=== PATIENT | female | born 1940 | race Caucasian/White ===

== ENCOUNTER 2022-01-30 09:16 | Inpatient (IN) | payer MEDICARE ==
[2022-01-30 11:06] LABS: SARS-CoV-2 NAA Rapid Test Not Detected (NotDetected)
[2022-01-30] MEDS ORDERED: Neomycin-Polymyxin 1 ML AMP ONE ×2 (11:25→13:29)
[2022-01-30] MEDS ORDERED: Ropivacaine 0.5% HCl/PF (150 MG/30 ML VIAL) ONE (11:29)
[2022-01-30] MEDS ORDERED: EPINEPHrine 1 MG/ML AMP ONE (11:30)
[2022-01-30] MEDS ORDERED: Fentanyl 100 MCG/2 ML VIAL ONE ×3 (11:30→14:13)
[2022-01-30] MEDS ORDERED: Lidocaine 1% PF 5 ML VIAL ONE ×2 (11:30→11:52)
[2022-01-30] MEDS ORDERED: Clindamycin/D5W 900 mg/50 ml Premix Bag ONE (11:36)
[2022-01-30] MEDS ORDERED: Clindamycin/D5W 300 MG/50 ML BAG ONE (11:36)
[2022-01-30] MEDS ORDERED: PROPOFOL 20 ML ONE (11:51)
[2022-01-30] MEDS ORDERED: Rocuronium Bromide 10 MG/ML (10ML VIAL) ONE (11:52)
[2022-01-30] MEDS ORDERED: Ondansetron ODT 4 MG TAB PO PRN (11:59)
[2022-01-30] MEDS ORDERED: Ondansetron PF 4 MG/2 ML Vial IVP PRN (11:59)
[2022-01-30] MEDS ORDERED: Zolpidem Tartrate 5 MG TAB PO PRN (11:59)
[2022-01-30] MEDS ORDERED: Warfarin Sodium 1 MG TAB PO SCH (12:00)
[2022-01-30] MEDS ORDERED: Tranexamic Acid 1,000 MG in Sodium Chloride 0.9% 100 ML IVPB SCH (12:00)
[2022-01-30] MEDS ORDERED: Warfarin Sodium 5 MG TAB PO SCH (12:00)
[2022-01-30] MEDS ORDERED: Tranexamic Acid 1,000 MG/10 ML VIAL ONE (12:05)
[2022-01-30] MEDS ORDERED: Morphine 4 MG/ML VIAL SLOW IVP PRN (12:40)
[2022-01-30] MEDS ORDERED: ePHEDrine Sulfate 50 MG/10 ML VIAL ONE (12:49)
[2022-01-30] MEDS ORDERED: Ondansetron PF 4 MG/2 ML Vial ONE (13:35)
[2022-01-30] MEDS ORDERED: Glycopyrrolate 0.2 MG/ML 5 ML SYRINGE ONE (13:50)
[2022-01-30] MEDS: Sodium Chloride 0.9% 1,000 ML IV SCH ×2 (14:50→21:56)
[2022-01-30] MEDS: Morphine 4 MG/ML VIAL SLOW IVP PRN ×3 (16:07→21:44)
[2022-01-30] MEDS ORDERED: metFORMIN 500 MG TAB PO SCH (16:30)
[2022-01-30] MEDS: HYDROcodone/Acetaminophen 10/325 mg Tablet PO PRN ×2 (17:26→23:59)
[2022-01-30] MEDS: Clindamycin/D5W 900 MG in Premix Bag 1 BAG IVPB SCH (17:28)
[2022-01-30] MEDS ORDERED: HumaLOG 300 UNITS/3 ML VIAL SC PRN (18:38)
[2022-01-30] MEDS ORDERED: Dextrose 5% in Water 1,000 ML IV PRN (18:38)
[2022-01-30] MEDS ORDERED: Dextrose 50% Abboject 50 ML SYRINGE SLOW IVP PRN (18:38)
[2022-01-30] MEDS: Atorvastatin Calcium 10 MG TAB PO SCH (18:59)
[2022-01-30] MEDS: Acetaminophen 500 MG TAB PO SCH (21:45)
[2022-01-30] MEDS: Flecainide 50 MG TAB PO SCH (21:46)
[2022-01-31] MEDS: Clindamycin/D5W 900 MG in Premix Bag 1 BAG IVPB SCH (00:01)
[2022-01-31] MEDS: Morphine 4 MG/ML VIAL SLOW IVP PRN ×4 (03:11→14:36)
[2022-01-31] MEDS: HYDROcodone/Acetaminophen 10/325 mg Tablet PO PRN ×4 (06:10→23:54)
[2022-01-31] MEDS: Levothyroxine Sodium 100 MCG TAB PO SCH (06:11)
[2022-01-31] MEDS: Losartan Potassium 50 MG TAB PO SCH (09:30)
[2022-01-31] MEDS: Enoxaparin Sodium 100 MG/ML SYRINGE SC SCH ×2 (09:30→21:19)
[2022-01-31] MEDS: Flecainide 50 MG TAB PO SCH ×2 (09:30→21:19)
[2022-01-31] MEDS: NIFEdipine XL 30 MG TAB PO SCH (09:30)
[2022-01-31] MEDS: Aspirin Chewable 81 MG TAB PO SCH (09:30)
[2022-01-31 10:58] LABS: #Monocytes 1.2 10x3/uL (0.0-1.1); #Neutrophils 7.1 10x3/uL (1.5-8.4); %Basophils 0.3 % (0.0-2.0); %Lymphocytes 11.4 % (18.0-47.0); %Monocytes 12.9 % (0.0-10.0); %Neutrophils 75.1 % (40.0-75.0); Hemoglobin 9.4 g/dL (12.0-15.5); Mean Corpuscular HGB CONC 34.2 g/dL (32.0-36.0); Mean Corpuscular Hemoglobin 33.8 pg (27.0-33.0); Mean Corpuscular Volume 98.9 fl (81.6-98.3); Mean Platelet Volume 10.2 fl (7.4-10.4); Platelet Count 228 10x3/uL (150-450); RBC Distribution Width 12.6 % (11.5-14.5); Red Blood Cell (RBC) Count 2.78 10x6/uL (3.90-5.03); White Blood Cell (WBC) Count 9.5 10x3/uL (3.5-10.5)
[2022-01-31 11:25] LABS: ALT (SGPT) 17 U/L (8-55); AST (SGOT) 28 U/L (5-34); Albumin 3.4 g/dL (3.4-4.8); Alkaline Phosphatase 43 U/L (40-110); Anion Gap 12 mmol/L (10-20); BUN (Urea Nitrogen) 15 mg/dL (9.8-20.1); Bilirubin, Total 0.7 mg/dL (0.2-1.2); Calc. Creatinine Clearance 90 mL/min (70-130); Calcium 8.3 mg/dL (7.8-10.44); Carbon Dioxide 24 mmol/L (23-31); Chloride 102 mmol/L (98-107); Estimated GFR 71; Globulin 2.9 g/dL (2.4-3.5); Glucose 143 mg/dL (83-110); Potassium 4.5 mmol/L (3.5-5.1); Protein, Total 6.3 g/dL (5.8-8.1); Sodium 133 mmol/L (136-145)
[2022-01-31] MEDS: Sodium Chloride 0.9% 1,000 ML IV SCH (12:38)
[2022-01-31] MEDS: Atorvastatin Calcium 10 MG TAB PO SCH (17:23)
[2022-01-31] MEDS: Ketorolac Tromethamine 30 MG/ML VIAL IVP SCH (18:28)
[2022-01-31] MEDS: Acetaminophen 500 MG TAB PO SCH (21:19)
[2022-02-01] MEDS: Sodium Chloride 0.9% 1,000 ML IV SCH ×3 (00:01→14:10)
[2022-02-01] MEDS: Ketorolac Tromethamine 30 MG/ML VIAL IVP SCH ×4 (01:27→17:36)
[2022-02-01 05:46] LABS: #Eosinphils 0.1 10x3/uL (0.0-0.5); #Monocytes 1.4 10x3/uL (0.0-1.1); #Neutrophils 6.8 10x3/uL (1.5-8.4); %Basophils 0.4 % (0.0-2.0); %Eosinophils 0.9 % (0.0-6.0); %Lymphocytes 14.2 % (18.0-47.0); %Monocytes 13.9 % (0.0-10.0); %Neutrophils 70.1 % (40.0-75.0); Hemoglobin 8.9 g/dL (12.0-15.5); Mean Corpuscular HGB CONC 33.7 g/dL (32.0-36.0); Mean Corpuscular Hemoglobin 33.6 pg (27.0-33.0); Mean Corpuscular Volume 99.6 fl (81.6-98.3); Mean Platelet Volume 10.5 fl (7.4-10.4); Platelet Count 202 10x3/uL (150-450); RBC Distribution Width 12.6 % (11.5-14.5); Red Blood Cell (RBC) Count 2.65 10x6/uL (3.90-5.03); White Blood Cell (WBC) Count 9.8 10x3/uL (3.5-10.5)
[2022-02-01 05:51] LABS: ALT (SGPT) 12 U/L (8-55); AST (SGOT) 23 U/L (5-34); Albumin 3.2 g/dL (3.4-4.8); Alkaline Phosphatase 51 U/L (40-110); Anion Gap 12 mmol/L (10-20); BUN (Urea Nitrogen) 18 mg/dL (9.8-20.1); Bilirubin, Total 0.8 mg/dL (0.2-1.2); Calc. Creatinine Clearance 86 mL/min (70-130); Calcium 8.1 mg/dL (7.8-10.44); Carbon Dioxide 20 mmol/L (23-31); Chloride 105 mmol/L (98-107); Estimated GFR 64; Globulin 2.8 g/dL (2.4-3.5); Glucose 114 mg/dL (83-110); Magnesium 1.2 mg/dL (1.6-2.6); Potassium 4.4 mmol/L (3.5-5.1); Sodium 133 mmol/L (136-145)
[2022-02-01] MEDS: Enoxaparin Sodium 100 MG/ML SYRINGE SC SCH ×2 (09:41→20:46)
[2022-02-01] MEDS: Losartan Potassium 50 MG TAB PO SCH (09:42)
[2022-02-01] MEDS: Aspirin Chewable 81 MG TAB PO SCH (09:42)
[2022-02-01] MEDS: NIFEdipine XL 30 MG TAB PO SCH (09:43)
[2022-02-01] MEDS: Levothyroxine Sodium 100 MCG TAB PO SCH (09:43)
[2022-02-01] MEDS: Flecainide 50 MG TAB PO SCH ×2 (09:43→20:44)
[2022-02-01] MEDS: Magnesium 2 GM/50 ML(in water) 2 GM in Premix Bag 1 BAG IVPB SCH ×2 (12:43→15:34)
[2022-02-01] MEDS: Atorvastatin Calcium 10 MG TAB PO SCH (17:36)
[2022-02-01] MEDS: Acetaminophen 500 MG TAB PO SCH (20:44)
[2022-02-01] MEDS: HYDROcodone/Acetaminophen 10/325 mg Tablet PO PRN (20:45)
[2022-02-02] MEDS: Ketorolac Tromethamine 30 MG/ML VIAL IVP SCH ×3 (00:46→14:38)
[2022-02-02 05:16] LABS: #Monocytes 1.2 10x3/uL (0.0-1.1); #Neutrophils 11.2 10x3/uL (1.5-8.4); %Basophils 0.3 % (0.0-2.0); %Eosinophils 0.1 % (0.0-6.0); %Lymphocytes 11.3 % (18.0-47.0); %Monocytes 8.6 % (0.0-10.0); %Neutrophils 79.2 % (40.0-75.0); Hemoglobin 8.1 g/dL (12.0-15.5); Mean Corpuscular HGB CONC 34.3 g/dL (32.0-36.0); Mean Corpuscular Hemoglobin 34.3 pg (27.0-33.0); Mean Platelet Volume 10.5 fl (7.4-10.4); Platelet Count 236 10x3/uL (150-450); RBC Distribution Width 12.6 % (11.5-14.5); Red Blood Cell (RBC) Count 2.36 10x6/uL (3.90-5.03); White Blood Cell (WBC) Count 14.2 10x3/uL (3.5-10.5)
[2022-02-02 05:24] LABS: ALT (SGPT) 12 U/L (8-55); AST (SGOT) 18 U/L (5-34); Alkaline Phosphatase 63 U/L (40-110); Anion Gap 13 mmol/L (10-20); BUN (Urea Nitrogen) 26 mg/dL (9.8-20.1); Bilirubin, Total 0.7 mg/dL (0.2-1.2); Calc. Creatinine Clearance 60 mL/min (70-130); Calcium 8.4 mg/dL (7.8-10.44); Carbon Dioxide 20 mmol/L (23-31); Chloride 108 mmol/L (98-107); Estimated GFR 42; Globulin 2.9 g/dL (2.4-3.5); Glucose 148 mg/dL (83-110); Potassium 4.5 mmol/L (3.5-5.1); Protein, Total 5.9 g/dL (5.8-8.1); Sodium 136 mmol/L (136-145)
[2022-02-02] MEDS: Levothyroxine Sodium 100 MCG TAB PO SCH (05:25)
[2022-02-02] MEDS: Sodium Chloride 0.9% 1,000 ML IV SCH ×2 (05:31→10:52)
[2022-02-02] MEDS: HYDROcodone/Acetaminophen 10/325 mg Tablet PO PRN ×2 (05:38→09:17)
[2022-02-02] MEDS: NIFEdipine XL 30 MG TAB PO SCH (09:16)
[2022-02-02] MEDS: Enoxaparin Sodium 100 MG/ML SYRINGE SC SCH (09:16)
[2022-02-02] MEDS: Aspirin Chewable 81 MG TAB PO SCH (09:16)
[2022-02-02] MEDS: Losartan Potassium 50 MG TAB PO SCH (09:16)
[2022-02-02] MEDS: Flecainide 50 MG TAB PO SCH ×2 (09:16→22:00)
[2022-02-02] MEDS ORDERED: Sodium Chloride 0.9% 1,000 ML IV SCH ×2 (12:00→13:00)
[2022-02-02] MEDS ORDERED: VANCOMYCIN 2 GRAM/400 ML BAG 2 GM in Premix Bag 1 BAG IVPB SCH (13:00)
[2022-02-02] MEDS ORDERED: Cefepime 2 GM in Sodium Chloride 0.9% 100 ML IVPB SCH (13:00)
[2022-02-02 13:14] LABS: Hemoglobin 6.8 g/dL (12.0-15.5); Mean Corpuscular Hemoglobin 33.8 pg (27.0-33.0); Mean Corpuscular Volume 99.5 fl (81.6-98.3); Mean Platelet Volume 10.5 fl (7.4-10.4); Platelet Count 213 10x3/uL (150-450); RBC Distribution Width 12.7 % (11.5-14.5); Red Blood Cell (RBC) Count 2.01 10x6/uL (3.90-5.03); White Blood Cell (WBC) Count 17.9 10x3/uL (3.5-10.5)
[2022-02-02 13:15] LABS: MDiff Complete? YES
[2022-02-02 13:34] LABS: Troponin I 0.018 ng/mL (< 0.028)
[2022-02-02 13:35] LABS: ALT (SGPT) 10 U/L (8-55); AST (SGOT) 17 U/L (5-34); Albumin 2.5 g/dL (3.4-4.8); Alkaline Phosphatase 57 U/L (40-110); Anion Gap 14 mmol/L (10-20); BUN (Urea Nitrogen) 30 mg/dL (9.8-20.1); Calc. Creatinine Clearance 42 mL/min (70-130); Calcium 7.4 mg/dL (7.8-10.44); Carbon Dioxide 15 mmol/L (23-31); Chloride 110 mmol/L (98-107); Estimated GFR 27; Globulin 2.1 g/dL (2.4-3.5); Glucose 155 mg/dL (83-110); Protein, Total 4.6 g/dL (5.8-8.1); Sodium 135 mmol/L (136-145)
[2022-02-02 13:45] LABS: Band 6 % (5-11); Lymphocytes 11 % (21-51); Monocytes 6 % (0-10); Neutrophil 77 % (42-75)
[2022-02-02 13:46] LABS: Platelet Morphology Comment Appears Adequate
[2022-02-02] MEDS ORDERED: Pantoprazole 80 MG in Sodium Chloride 0.9% 100 ML IVPB SCH (13:55)
[2022-02-02] MEDS: NOREPINEPHRINE 8 MG/250 ML-D5W 250 ML IVPB SCH (13:55)
[2022-02-02] MEDS ORDERED: Vancomycin Sliding Scale 1 EACH IVPB PRN (14:40)
[2022-02-02] MEDS: metroNIDAZOLE 500 MG in Premix Bag 1 BAG IVPB SCH ×2 (15:26→23:09)
[2022-02-02 15:47] LABS: INR-International Normal Ratio 1.1; PTT 53.8 sec (22.0-33.0); Prothrombin Time 11.9 sec (9.5-12.1)
[2022-02-02] MEDS ORDERED: Sodium Bicarbonate 150 MEQ in Dextrose 5% in Water 1,000 ML IV SCH ×2 (16:00→23:15)
[2022-02-02] MEDS ORDERED: Rocuronium Bromide 10 MG/ML (10ML VIAL) ONE (17:23)
[2022-02-02] MEDS ORDERED: Fentanyl 100 MCG/2 ML VIAL ONE (17:23)
[2022-02-02] MEDS ORDERED: Succinylcholine 200 MG/10 ml SYRINGE FS ONE (17:23)
[2022-02-02] MEDS ORDERED: Ondansetron PF 4 MG/2 ML Vial ONE (17:23)
[2022-02-02] MEDS: Atorvastatin Calcium 10 MG TAB PO SCH (17:24)
[2022-02-02] MEDS ORDERED: Ketamine 50 MG/ML (10ML VIAL) ONE (17:25)
[2022-02-02] MEDS ORDERED: EPINEPHrine 1 MG/ML AMP ONE (17:42)
[2022-02-02] MEDS ORDERED: Bupivacaine PF 0.5% 30 ML VIAL ONE (17:42)
[2022-02-02 17:53] LABS: Bilirubin Neg (Negative); Blood, Urine Negative (Negative); CAUTI Indications for Culture Dysuria,urgency,freq; Clarity Clear (Clear); Glucose, Urine (Dipstick) Normal (Negative); Ketone, Urine Negative (Negative); Leukocyte Negative (Negative); Nitrite Negative (Negative); Protein, Urine (Dipstick) Negative (Neg-Trace); Specific Gravity, Urine 1.015 (1.005-1.030); pH, Urine 6.5 (5.0-9.0)
[2022-02-02 17:57] LABS: Urine Culture Reflex No No
[2022-02-02 17:59] LABS: Bacteria/HPF None Seen HPF (None Seen); RBC/HPF 0-3 HPF (0-3); Squamous Epithelial 0-3 HPF (0-3); WBC/HPF 0-3 HPF (0-3)
[2022-02-02] MEDS ORDERED: Cefepime 1 GM in Sodium Chloride 0.9% 100 ML IVPB SCH (19:00)
[2022-02-02] MEDS ORDERED: Midazolam HCl 2 mg/2 ml Vial ONE (19:46)
[2022-02-02] MEDS ORDERED: Doxycycline 100 MG in Sodium Chloride 0.9% 100 ML IVPB SCH (21:00)
[2022-02-02] MEDS ORDERED: Vancomycin HCl 1 GM in Sodium Chloride 0.9% 250 ML 250 ML IVPB SCH (21:00)
[2022-02-02] MEDS ORDERED: Ventilator Sedation Protocol 1 EACH FS ONE (21:16)
[2022-02-02] MEDS ORDERED: Propofol BOLUS 1,000 MG/100 ML VIAL IV PRN (21:30)
[2022-02-02] MEDS ORDERED: DISCONTINUE PREVIOUS NARCOTIC PAIN MEDICATIONS AND BENZODIAZEPINES FS SCH (21:30)
[2022-02-02] MEDS ORDERED: Fentanyl BOLUS 250 ML IVPB PRN (21:30)
[2022-02-02] MEDS ORDERED: Propofol 1,000 MG/100 ML VIAL IV PRN (21:34)
[2022-02-02 21:57] LABS: MDiff Complete? YES; Mean Corpuscular HGB CONC 35.4 g/dL (32.0-36.0); Mean Corpuscular Hemoglobin 33.8 pg (27.0-33.0); Mean Corpuscular Volume 95.4 fl (81.6-98.3); Mean Platelet Volume 10.3 fl (7.4-10.4); Platelet Count 230 10x3/uL (150-450); RBC Distribution Width 14.6 % (11.5-14.5); Red Blood Cell (RBC) Count 2.37 10x6/uL (3.90-5.03); White Blood Cell (WBC) Count 15.3 10x3/uL (3.5-10.5)
[2022-02-02] MEDS: Acetaminophen 500 MG TAB PO SCH (22:00)
[2022-02-02 22:01] LABS: Lactic Acid 1.3 mmol/L (0.5-2.2)
[2022-02-02 22:03] LABS: Phosphorus 4.1 mg/dL (2.3-4.7)
[2022-02-02 22:06] LABS: ALT (SGPT) 24 U/L (8-55); AST (SGOT) 27 U/L (5-34); Albumin 2.5 g/dL (3.4-4.8); Alkaline Phosphatase 62 U/L (40-110); Anion Gap 13 mmol/L (10-20); BUN (Urea Nitrogen) 33 mg/dL (9.8-20.1); Bilirubin, Total 1.4 mg/dL (0.2-1.2); Calc. Creatinine Clearance 45 mL/min (70-130); Calcium 7.4 mg/dL (7.8-10.44); Carbon Dioxide 17 mmol/L (23-31); Chloride 107 mmol/L (98-107); Estimated GFR 30; Globulin 2.6 g/dL (2.4-3.5); Glucose 223 mg/dL (83-110); Magnesium 2.1 mg/dL (1.6-2.6); Protein, Total 5.1 g/dL (5.8-8.1); Sodium 133 mmol/L (136-145)
[2022-02-02 22:53] LABS: ALV-art Gradient 98.025 mmHg (0-20); Actual Bicarbonate (HCO3a) 21.4 mEq/L (22-28); Base Excess (BEa) -5.3 mEq/L (-2.0 to +3.0); CO2 Tension 46.7 mmHg (35.0-45.0); Calcium, Ionized (arterial) 1.07 mmol/L (1.12-1.30); Carboxyhemoglobin (COHb) 0.1 gm% (0.0-3.0); Critical Notified By: CP.PH; Hemoglobin (Hb) 9.9 g/dL (12.0-16.0); O2 Tension (PaO2), arterial 128.8 mmHg (> 70.0); Puncture Site Arterial Line; RapidComm Collect By CP.PH; pH, Arterial 7.28 (7.35-7.45)
[2022-02-02 22:58] LABS: Band 15 % (5-11); Lymphocytes 8 % (21-51); Monocytes 11 % (0-10); Neutrophil 66 % (42-75)
[2022-02-02 23:01] LABS: Anisocytosis SLIGHT = 6-15 cells (100X) (0-5/hpf); Large Platelets SLIGHT; Macrocytosis MODERATE=16-30 cells (100X) (0-5/hpf); Platelet Morphology Comment Appears Adequate; Polychromasia SLIGHT = 2-3 cells (100X) (0-2/hpf)
[2022-02-02] MEDS: Propofol 1,000 MG/100 ML VIAL IV PRN (23:43)
[2022-02-03] MEDS: Morphine 2 MG/ML VIAL SLOW IVP PRN (00:24)
[2022-02-03] MEDS: Cefepime 1 GM in Sodium Chloride 0.9% 100 ML IVPB SCH ×2 (03:00→13:23)
[2022-02-03 04:19] LABS: ALT (SGPT) 17 U/L (8-55); AST (SGOT) 23 U/L (5-34); Albumin 2.4 g/dL (3.4-4.8); Alkaline Phosphatase 58 U/L (40-110); Anion Gap 12 mmol/L (10-20); BUN (Urea Nitrogen) 33 mg/dL (9.8-20.1); Bilirubin, Total 1.4 mg/dL (0.2-1.2); Calc. Creatinine Clearance 59 mL/min (70-130); Calcium 7.2 mg/dL (7.8-10.44); Carbon Dioxide 19 mmol/L (23-31); Chloride 108 mmol/L (98-107); Estimated GFR 41; Globulin 2.5 g/dL (2.4-3.5); Glucose 181 mg/dL (83-110); Potassium 3.8 mmol/L (3.5-5.1); Protein, Total 4.9 g/dL (5.8-8.1); Sodium 135 mmol/L (136-145)
[2022-02-03 04:50] LABS: Hemoglobin 8.3 g/dL (12.0-15.5); Mean Corpuscular HGB CONC 34.9 g/dL (32.0-36.0); Mean Corpuscular Hemoglobin 32.4 pg (27.0-33.0); Mean Platelet Volume 10.5 fl (7.4-10.4); Platelet Count 261 10x3/uL (150-450); RBC Distribution Width 15.3 % (11.5-14.5); Red Blood Cell (RBC) Count 2.56 10x6/uL (3.90-5.03); White Blood Cell (WBC) Count 16.1 10x3/uL (3.5-10.5)
[2022-02-03 04:51] LABS: MDiff Complete? YES
[2022-02-03] MEDS: metroNIDAZOLE 500 MG in Premix Bag 1 BAG IVPB SCH ×3 (05:07→20:49)
[2022-02-03] MEDS: Levothyroxine 100 MCG SDV SLOW IVP SCH (05:11)
[2022-02-03] MEDS: NOREPINEPHRINE 8 MG/250 ML-D5W 250 ML IVPB SCH ×2 (06:30→16:30)
[2022-02-03 07:02] LABS: Band 28 % (5-11); Lymphocytes 8 % (21-51); Monocytes 16 % (0-10); Neutrophil 48 % (42-75); Nucleated RBC 1 % (0)
[2022-02-03 07:04] LABS: Anisocytosis SLIGHT = 6-15 cells (100X) (0-5/hpf); Hypochromia SLIGHT = 6-15 cells (100X) (0-5/hpf); Macrocytosis SLIGHT = 6-15 cells (100X) (0-5/hpf); Platelet Morphology Comment Appears Adequate
[2022-02-03] MEDS: Propofol 1,000 MG/100 ML VIAL IV PRN ×2 (07:38→16:30)
[2022-02-03 08:14] LABS: Base Excess (BEa) -2.2 mEq/L (-2.0 to +3.0); CO2 Tension 29.2 mmHg (35.0-45.0); Calcium, Ionized (arterial) 0.88 mmol/L (1.12-1.30); Carboxyhemoglobin (COHb) 0.2 gm% (0.0-3.0); Hemoglobin (Hb) 7.5 g/dL (12.0-16.0); O2 Tension (PaO2), arterial 127.6 mmHg (> 70.0); Potassium - ABG Lab 2.9 mmol/L (3.70-5.30); Puncture Site Arterial Line; pH, Arterial 7.47 (7.35-7.45)
[2022-02-03] MEDS: Aspirin Chewable 81 MG TAB PO SCH (09:35)
[2022-02-03] MEDS: Flecainide 50 MG TAB PO SCH ×2 (09:37→20:48)
[2022-02-03] MEDS ORDERED: Ventilator Sedation Protocol 1 EACH FS PRN (10:30)
[2022-02-03] MEDS: FENTANYL 2,000MCG/100-0.9%NACL 100 ML IVPB SCH (10:56)
[2022-02-03] MEDS: Sodium Bicarbonate 150 MEQ in Dextrose 5% in Water 1,000 ML IV SCH (11:06)
[2022-02-03] MEDS ORDERED: Vancomycin HCl 1 GM in Sodium Chloride 0.9% 250 ML 250 ML IVPB SCH (14:30)
[2022-02-03] MEDS ORDERED: Heparin 10,000 UNITS/ 10 ML VIAL SLOW IVP SCH (14:45)
[2022-02-03] MEDS: Heparin 25,000 units/D5W 500 ML IV SCH (15:33)
[2022-02-03] MEDS: Lorazepam 2 MG/ML VIAL SLOW IVP PRN (17:24)
[2022-02-03] MEDS: Pantoprazole 40 MG VIAL IVP SCH (20:48)
[2022-02-03] MEDS: Acetaminophen 500 MG TAB PO SCH (20:48)
[2022-02-03 21:51] LABS: Hemoglobin 7.6 g/dL (12.0-15.5)
[2022-02-04] MEDS: Cefepime 1 GM in Sodium Chloride 0.9% 100 ML IVPB SCH ×2 (01:34→14:14)
[2022-02-04] MEDS: FENTANYL 2,000MCG/100-0.9%NACL 100 ML IVPB SCH ×2 (01:34→21:23)
[2022-02-04] MEDS: Propofol 1,000 MG/100 ML VIAL IV PRN (02:04)
[2022-02-04 03:31] LABS: Hemoglobin 7.6 g/dL (12.0-15.5); Mean Corpuscular HGB CONC 35.5 g/dL (32.0-36.0); Mean Corpuscular Hemoglobin 32.6 pg (27.0-33.0); Mean Corpuscular Volume 91.8 fl (81.6-98.3); Platelet Count 276 10x3/uL (150-450); RBC Distribution Width 15.1 % (11.5-14.5); Red Blood Cell (RBC) Count 2.33 10x6/uL (3.90-5.03); White Blood Cell (WBC) Count 15.7 10x3/uL (3.5-10.5)
[2022-02-04 03:32] LABS: MDiff Complete? YES
[2022-02-04 04:07] LABS: ALT (SGPT) 13 U/L (8-55); AST (SGOT) 15 U/L (5-34); Albumin 2.1 g/dL (3.4-4.8); Alkaline Phosphatase 60 U/L (40-110); Anion Gap 12 mmol/L (10-20); BUN (Urea Nitrogen) 23 mg/dL (9.8-20.1); Bilirubin, Total 0.8 mg/dL (0.2-1.2); Calc. Creatinine Clearance 117 mL/min (70-130); Calcium 7.2 mg/dL (7.8-10.44); Carbon Dioxide 23 mmol/L (23-31); Chloride 102 mmol/L (98-107); Estimated GFR 84; Globulin 2.6 g/dL (2.4-3.5); Glucose 164 mg/dL (83-110); Magnesium 1.8 mg/dL (1.6-2.6); Phosphorus 1.7 mg/dL (2.3-4.7); Potassium 3.3 mmol/L (3.5-5.1); Protein, Total 4.7 g/dL (5.8-8.1); Sodium 134 mmol/L (136-145)
[2022-02-04] MEDS: NOREPINEPHRINE 8 MG/250 ML-D5W 250 ML IVPB SCH (04:46)
[2022-02-04] MEDS: Lorazepam 2 MG/ML VIAL SLOW IVP PRN (04:53)
[2022-02-04] MEDS: Potassium Chloride 20 MEQ in Premix Bag 1 BAG IVPB SCH ×2 (05:21→10:39)
[2022-02-04] MEDS ORDERED: Sodium Phosphate 15 MMOL in Sodium Chloride 0.9% 250 ML 250 ML IVPB SCH (05:30)
[2022-02-04 05:44] LABS: Actual Bicarbonate (HCO3a) 27.3 mEq/L (22-28); CO2 Tension 40.8 mmHg (35.0-45.0); Calcium, Ionized (arterial) 1.03 mmol/L (1.12-1.30); Carboxyhemoglobin (COHb) 0.1 gm% (0.0-3.0); Critical Notified By: CP.PH; Hemoglobin (Hb) 8.3 g/dL (12.0-16.0); O2 Tension (PaO2), arterial 72.4 mmHg (> 70.0); Potassium - ABG Lab 3.2 mmol/L (3.70-5.30); Puncture Site Arterial Line; RapidComm Collect By CP.PH; pH, Arterial 7.44 (7.35-7.45)
[2022-02-04] MEDS: metroNIDAZOLE 500 MG in Premix Bag 1 BAG IVPB SCH ×3 (06:04→21:23)
[2022-02-04] MEDS: Levothyroxine 100 MCG SDV SLOW IVP SCH (06:04)
[2022-02-04 06:35] LABS: Lymphocytes 14 % (21-51); Monocytes 12 % (0-10); Neutrophil 74 % (42-75)
[2022-02-04 06:41] LABS: Anisocytosis SLIGHT = 6-15 cells (100X) (0-5/hpf); Microcytosis SLIGHT = 6-15 cells (100X) (0-5/hpf); Platelet Morphology Comment Appears Adequate; Polychromasia SLIGHT = 2-3 cells (100X) (0-2/hpf)
[2022-02-04] MEDS: Sodium Bicarbonate 150 MEQ in Dextrose 5% in Water 1,000 ML IV SCH (06:54)
[2022-02-04] MEDS ORDERED: Electrolyte Replacement Protocol 1 EACH FS PRN (07:07)
[2022-02-04] MEDS ORDERED: Bupivacaine PF 0.5% 30 ML VIAL ONE (07:30)
[2022-02-04] MEDS ORDERED: EPINEPHrine 1 MG/ML AMP ONE ×2 (07:30→08:43)
[2022-02-04] MEDS ORDERED: Albumin 5% 250 ML ONE ×2 (07:38→07:39)
[2022-02-04] MEDS ORDERED: Albumin 5% 0 ML ONE (07:38)
[2022-02-04] MEDS ORDERED: Norepinephrine 4 MG/4 ML VIAL ONE (07:40)
[2022-02-04] MEDS ORDERED: Potassium Chloride 20 MEQ in Premix Bag 1 BAG IVPB SCH (07:45)
[2022-02-04] MEDS ORDERED: Magnesium 2 GM/50 ML(in water) 2 GM in Premix Bag 1 BAG IVPB SCH (08:00)
[2022-02-04] MEDS ORDERED: Fentanyl 100 MCG/2 ML VIAL ONE (08:12)
[2022-02-04] MEDS ORDERED: Vancomycin HCl 1 GM in Sodium Chloride 0.9% 250 ML 250 ML IVPB SCH ×2 (08:30→10:30)
[2022-02-04] MEDS ORDERED: Glycopyrrolate 0.2 MG/ML 5 ML SYRINGE ONE ×2 (08:43→08:54)
[2022-02-04] MEDS ORDERED: Atropine Sulfate 0.4 mg/1 ml Vial ONE (08:43)
[2022-02-04] MEDS ORDERED: PHENYLEPHRINE-NS 100 MCG/ML 10 ML SYRINGE ONE (08:43)
[2022-02-04] MEDS ORDERED: Ketorolac Tromethamine 30 MG/ML VIAL ONE (08:44)
[2022-02-04] MEDS ORDERED: Calcium Chloride 1 GM/10 ML Abboject SYRINGE ONE ×2 (08:49→08:55)
[2022-02-04] MEDS ORDERED: Lidocaine 1% PF 5 ML VIAL ONE (08:53)
[2022-02-04] MEDS ORDERED: Dexamethasone 4 mg/ml Vial ONE (08:53)
[2022-02-04] MEDS ORDERED: Rocuronium Bromide 10 MG/ML (10ML VIAL) ONE (08:53)
[2022-02-04] MEDS ORDERED: Succinylcholine 200 MG/10 ml SYRINGE FS ONE (08:54)
[2022-02-04] MEDS ORDERED: CEFAZOLIN 1 GM VIAL ONE (08:54)
[2022-02-04] MEDS ORDERED: Esmolol 100 MG/10 ML VIAL ONE (08:54)
[2022-02-04] MEDS ORDERED: Lidocaine 2% PF 5 ML VIAL ONE (08:54)
[2022-02-04] MEDS ORDERED: Sodium Chloride 0.9% 0 ML ONE (08:55)
[2022-02-04] MEDS ORDERED: Potassium Phosphate 15 MMOL in Sodium Chloride 0.9% 250 ML 250 ML IVPB SCH (10:00)
[2022-02-04] MEDS: Flecainide 50 MG TAB PO SCH ×2 (10:53→21:26)
[2022-02-04] MEDS: Aspirin Chewable 81 MG TAB PO SCH (10:53)
[2022-02-04] MEDS: Pantoprazole 40 MG VIAL IVP SCH ×2 (10:55→21:22)
[2022-02-04 11:19] LABS: Actual Bicarbonate (HCO3a) 25.7 mEq/L (22-28); Base Excess (BEa) -0.5 mEq/L (-2.0 to +3.0); CO2 Tension 48.5 mmHg (35.0-45.0); Calcium, Ionized (arterial) 1.14 mmol/L (1.12-1.30); Carboxyhemoglobin (COHb) 0.4 gm% (0.0-3.0); Hemoglobin (Hb) 13.3 g/dL (12.0-16.0); O2 Tension (PaO2), arterial 107.5 mmHg (> 70.0); Potassium - ABG Lab 3.2 mmol/L (3.70-5.30); Puncture Site Other Site; RapidComm Collect By OR NURSE; pH, Arterial 7.34 (7.35-7.45)
[2022-02-04 11:23] LABS: ALV-art Gradient 544.875 mmHg (0-20)
[2022-02-04] MEDS ORDERED: Albumin 25% 25 GM/100 ML BOT IVPB SCH (13:00)
[2022-02-04] MEDS: Heparin 25,000 units/D5W 500 ML IV SCH (18:32)
[2022-02-04 20:11] LABS: Hemoglobin 7.3 g/dL (12.0-15.5)
[2022-02-04] MEDS: Acetaminophen 500 MG TAB PO SCH (21:21)
[2022-02-05 00:19] LABS: Hemoglobin 7.5 g/dL (12.0-15.5)
[2022-02-05] MEDS: Cefepime 1 GM in Sodium Chloride 0.9% 100 ML IVPB SCH ×2 (01:04→13:07)
[2022-02-05] MEDS ORDERED: Sodium Chloride 0.9% 500 ML IV SCH (01:30)
[2022-02-05] MEDS: NOREPINEPHRINE 8 MG/250 ML-D5W 250 ML IVPB SCH ×2 (02:06→22:19)
[2022-02-05] MEDS: Morphine 2 MG/ML VIAL SLOW IVP PRN (03:51)
[2022-02-05 04:35] LABS: Hemoglobin 7.1 g/dL (12.0-15.5); Mean Corpuscular HGB CONC 34.1 g/dL (32.0-36.0); Mean Corpuscular Hemoglobin 32.7 pg (27.0-33.0); Mean Corpuscular Volume 95.9 fl (81.6-98.3); Mean Platelet Volume 9.6 fl (7.4-10.4); Platelet Count 269 10x3/uL (150-450); RBC Distribution Width 15.1 % (11.5-14.5); Red Blood Cell (RBC) Count 2.17 10x6/uL (3.90-5.03); White Blood Cell (WBC) Count 13.2 10x3/uL (3.5-10.5)
[2022-02-05 04:43] LABS: Actual Bicarbonate (HCO3a) 25.2 mEq/L (22-28); Base Excess (BEa) -0.2 mEq/L (-2.0 to +3.0); CO2 Tension 44.2 mmHg (35.0-45.0); Calcium, Ionized (arterial) 1.06 mmol/L (1.12-1.30); Carboxyhemoglobin (COHb) 0.1 gm% (0.0-3.0); Critical Notified By: CP.PH; Hemoglobin (Hb) 10.3 g/dL (12.0-16.0); O2 Tension (PaO2), arterial 69.6 mmHg (> 70.0); Potassium - ABG Lab 3.7 mmol/L (3.70-5.30); Puncture Site LRA; RapidComm Collect By CP.PH; pH, Arterial 7.37 (7.35-7.45)
[2022-02-05 04:49] LABS: MDiff Complete? YES
[2022-02-05 04:53] LABS: Band 12 % (5-11); Eosinophils 2 % (0-10); Lymphocytes 13 % (21-51); Monocytes 6 % (0-10); Neutrophil 65 % (42-75); Reactive Lymphocytes 1 % (0-10)
[2022-02-05 04:54] LABS: Platelet Morphology Comment Appears Adequate
[2022-02-05 04:55] LABS: RBC Morphology Normal
[2022-02-05 05:10] LABS: ALT (SGPT) 17 U/L (8-55); AST (SGOT) 17 U/L (5-34); Albumin 2.4 g/dL (3.4-4.8); Alkaline Phosphatase 60 U/L (40-110); Anion Gap 9 mmol/L (10-20); BUN (Urea Nitrogen) 22 mg/dL (9.8-20.1); Calc. Creatinine Clearance 113 mL/min (70-130); Calcium 7.6 mg/dL (7.8-10.44); Carbon Dioxide 25 mmol/L (23-31); Chloride 105 mmol/L (98-107); Estimated GFR 80; Globulin 2.4 g/dL (2.4-3.5); Glucose 153 mg/dL (83-110); Magnesium 2.3 mg/dL (1.6-2.6); Phosphorus 2.5 mg/dL (2.3-4.7); Potassium 3.7 mmol/L (3.5-5.1); Protein, Total 4.8 g/dL (5.8-8.1); Sodium 135 mmol/L (136-145)
[2022-02-05] MEDS: metroNIDAZOLE 500 MG in Premix Bag 1 BAG IVPB SCH ×3 (06:04→21:12)
[2022-02-05] MEDS: Levothyroxine 100 MCG SDV SLOW IVP SCH (06:04)
[2022-02-05] MEDS: Pantoprazole 40 MG VIAL IVP SCH ×2 (09:03→20:19)
[2022-02-05] MEDS: FENTANYL 2,000MCG/100-0.9%NACL 100 ML IVPB SCH ×2 (09:03→23:40)
[2022-02-05] MEDS: Flecainide 50 MG TAB PO SCH ×2 (09:31→20:19)
[2022-02-05] MEDS: Aspirin Chewable 81 MG TAB PO SCH (09:31)
[2022-02-05] MEDS: Dexmedetomidine In 0.9 % NaCl 400 MCG in Premix Bag 1 BAG IVPB SCH ×2 (13:07→22:18)
[2022-02-05 17:42] LABS: Hemoglobin 7.4 g/dL (12.0-15.5)
[2022-02-05] MEDS ORDERED: Pantoprazole 40 MG VIAL ONE (19:52)
[2022-02-05] MEDS: HumaLOG 300 UNITS/3 ML VIAL SC PRN ×2 (20:19→23:49)
[2022-02-05] MEDS: Acetaminophen 500 MG TAB PO SCH (20:19)
[2022-02-05] MEDS: Heparin 25,000 units/D5W 500 ML IV SCH (23:40)
[2022-02-06] MEDS: Cefepime 1 GM in Sodium Chloride 0.9% 100 ML IVPB SCH ×2 (01:51→13:37)
[2022-02-06 04:04] LABS: ALV-art Gradient 132.625 mmHg (0-20); Actual Bicarbonate (HCO3a) 24.7 mEq/L (22-28); Base Excess (BEa) -0.3 mEq/L (-2.0 to +3.0); CO2 Tension 42.3 mmHg (35.0-45.0); Calcium, Ionized (arterial) 1.08 mmol/L (1.12-1.30); Carboxyhemoglobin (COHb) 0.4 gm% (0.0-3.0); Hemoglobin (Hb) 7.8 g/dL (12.0-16.0); O2 Tension (PaO2), arterial 99.7 mmHg (> 70.0); Potassium - ABG Lab 3.7 mmol/L (3.70-5.30); Puncture Site LRA; pH, Arterial 7.39 (7.35-7.45)
[2022-02-06 04:28] LABS: #Basophils 0.1 10x3/uL (0.0-0.2); #Eosinphils 0.4 10x3/uL (0.0-0.5); #Monocytes 1.8 10x3/uL (0.0-1.1); #Neutrophils 8.9 10x3/uL (1.5-8.4); %Basophils 0.4 % (0.0-2.0); %Eosinophils 2.8 % (0.0-6.0); %Monocytes 13.8 % (0.0-10.0); %Neutrophils 68.9 % (40.0-75.0); Hemoglobin 7.2 g/dL (12.0-15.5); Mean Corpuscular HGB CONC 33.8 g/dL (32.0-36.0); Mean Corpuscular Hemoglobin 32.9 pg (27.0-33.0); Mean Corpuscular Volume 97.3 fl (81.6-98.3); Mean Platelet Volume 9.1 fl (7.4-10.4); Platelet Count 312 10x3/uL (150-450); Red Blood Cell (RBC) Count 2.19 10x6/uL (3.90-5.03); White Blood Cell (WBC) Count 12.9 10x3/uL (3.5-10.5)
[2022-02-06] MEDS: Dexmedetomidine In 0.9 % NaCl 400 MCG in Premix Bag 1 BAG IVPB SCH ×4 (04:52→23:40)
[2022-02-06 04:54] LABS: ALT (SGPT) 17 U/L (8-55); AST (SGOT) 21 U/L (5-34); Albumin 2.4 g/dL (3.4-4.8); Alkaline Phosphatase 66 U/L (40-110); Anion Gap 10 mmol/L (10-20); BUN (Urea Nitrogen) 22 mg/dL (9.8-20.1); Bilirubin, Total 0.6 mg/dL (0.2-1.2); Calc. Creatinine Clearance 114 mL/min (70-130); Calcium 7.7 mg/dL (7.8-10.44); Carbon Dioxide 24 mmol/L (23-31); Chloride 104 mmol/L (98-107); Estimated GFR 81; Globulin 2.6 g/dL (2.4-3.5); Glucose 172 mg/dL (83-110); Magnesium 2.3 mg/dL (1.6-2.6); Phosphorus 2.1 mg/dL (2.3-4.7); Potassium 3.7 mmol/L (3.5-5.1); Sodium 134 mmol/L (136-145)
[2022-02-06] MEDS: HumaLOG 300 UNITS/3 ML VIAL SC PRN (05:10)
[2022-02-06] MEDS: Levothyroxine 100 MCG SDV SLOW IVP SCH (05:53)
[2022-02-06] MEDS: metroNIDAZOLE 500 MG in Premix Bag 1 BAG IVPB SCH ×3 (06:14→21:50)
[2022-02-06] MEDS: Flecainide 50 MG TAB PO SCH ×2 (07:33→21:48)
[2022-02-06] MEDS: Pantoprazole 40 MG VIAL IVP SCH ×2 (07:34→21:49)
[2022-02-06] MEDS: Aspirin Chewable 81 MG TAB PO SCH (07:35)
[2022-02-06] MEDS: FENTANYL 2,000MCG/100-0.9%NACL 100 ML IVPB SCH (12:19)
[2022-02-06] MEDS: Acetaminophen 500 MG TAB PO SCH (21:48)
[2022-02-07] MEDS: Heparin 25,000 units/D5W 500 ML IV SCH (01:31)
[2022-02-07] MEDS: Dexmedetomidine In 0.9 % NaCl 400 MCG in Premix Bag 1 BAG IVPB SCH ×4 (01:31→22:12)
[2022-02-07] MEDS: Cefepime 1 GM in Sodium Chloride 0.9% 100 ML IVPB SCH ×2 (01:32→14:16)
[2022-02-07] MEDS: FENTANYL 2,000MCG/100-0.9%NACL 100 ML IVPB SCH (01:32)
[2022-02-07 03:57] LABS: ALT (SGPT) 16 U/L (8-55); AST (SGOT) 15 U/L (5-34); Albumin 2.3 g/dL (3.4-4.8); Alkaline Phosphatase 60 U/L (40-110); Anion Gap 9 mmol/L (10-20); BUN (Urea Nitrogen) 23 mg/dL (9.8-20.1); Bilirubin, Total 0.5 mg/dL (0.2-1.2); Calc. Creatinine Clearance 128 mL/min (70-130); Calcium 7.6 mg/dL (7.8-10.44); Carbon Dioxide 23 mmol/L (23-31); Chloride 104 mmol/L (98-107); Estimated GFR 89; Globulin 2.5 g/dL (2.4-3.5); Glucose 162 mg/dL (83-110); Magnesium 2.2 mg/dL (1.6-2.6); Protein, Total 4.8 g/dL (5.8-8.1); Sodium 132 mmol/L (136-145)
[2022-02-07 04:00] LABS: #Eosinphils 0.1 10x3/uL (0.0-0.5); #Neutrophils 6.4 10x3/uL (1.5-8.4); %Basophils 0.3 % (0.0-2.0); %Eosinophils 0.9 % (0.0-6.0); %Lymphocytes 9.5 % (18.0-47.0); %Monocytes 11.5 % (0.0-10.0); %Neutrophils 74.8 % (40.0-75.0); Hemoglobin 7.9 g/dL (12.0-15.5); Mean Corpuscular HGB CONC 33.5 g/dL (32.0-36.0); Mean Corpuscular Volume 95.5 fl (81.6-98.3); Mean Platelet Volume 9.5 fl (7.4-10.4); Platelet Count 300 10x3/uL (150-450); RBC Distribution Width 15.9 % (11.5-14.5); Red Blood Cell (RBC) Count 2.47 10x6/uL (3.90-5.03); White Blood Cell (WBC) Count 8.6 10x3/uL (3.5-10.5)
[2022-02-07 04:11] LABS: ALV-art Gradient 147.575 mmHg (0-20); Actual Bicarbonate (HCO3a) 25.3 mEq/L (22-28); Base Excess (BEa) 0.4 mEq/L (-2.0 to +3.0); CO2 Tension 41.7 mmHg (35.0-45.0); Calcium, Ionized (arterial) 1.09 mmol/L (1.12-1.30); Carboxyhemoglobin (COHb) 0.1 gm% (0.0-3.0); Hemoglobin (Hb) 9.2 g/dL (12.0-16.0); O2 Tension (PaO2), arterial 85.5 mmHg (> 70.0); Potassium - ABG Lab 4.1 mmol/L (3.70-5.30); Puncture Site RRA
[2022-02-07] MEDS: PHOS-NAK 1 PKT PACK PO SCH ×2 (05:22→09:04)
[2022-02-07] MEDS: Levothyroxine 100 MCG SDV SLOW IVP SCH (05:23)
[2022-02-07] MEDS: metroNIDAZOLE 500 MG in Premix Bag 1 BAG IVPB SCH ×3 (05:23→21:26)
[2022-02-07] MEDS: Aspirin Chewable 81 MG TAB PO SCH (09:04)
[2022-02-07] MEDS: Flecainide 50 MG TAB PO SCH ×2 (09:04→20:22)
[2022-02-07] MEDS: Pantoprazole 40 MG VIAL IVP SCH ×2 (09:05→20:23)
[2022-02-07] MEDS: HumaLOG 300 UNITS/3 ML VIAL SC PRN ×2 (10:33→16:58)
[2022-02-07] MEDS: Acetaminophen 500 MG TAB PO SCH (20:22)
[2022-02-08] MEDS: Cefepime 1 GM in Sodium Chloride 0.9% 100 ML IVPB SCH (02:50)
[2022-02-08] MEDS: Dexmedetomidine In 0.9 % NaCl 400 MCG in Premix Bag 1 BAG IVPB SCH ×4 (03:23→20:31)
[2022-02-08 04:55] LABS: #Eosinphils 0.1 10x3/uL (0.0-0.5); #Monocytes 0.9 10x3/uL (0.0-1.1); #Neutrophils 6.3 10x3/uL (1.5-8.4); %Basophils 0.5 % (0.0-2.0); %Eosinophils 1.4 % (0.0-6.0); %Lymphocytes 11.2 % (18.0-47.0); %Monocytes 10.4 % (0.0-10.0); %Neutrophils 71.8 % (40.0-75.0); Hemoglobin 8.2 g/dL (12.0-15.5); Mean Corpuscular HGB CONC 33.6 g/dL (32.0-36.0); Mean Corpuscular Hemoglobin 32.2 pg (27.0-33.0); Mean Corpuscular Volume 95.7 fl (81.6-98.3); Mean Platelet Volume 9.4 fl (7.4-10.4); Platelet Count 384 10x3/uL (150-450); RBC Distribution Width 15.5 % (11.5-14.5); Red Blood Cell (RBC) Count 2.55 10x6/uL (3.90-5.03); White Blood Cell (WBC) Count 8.8 10x3/uL (3.5-10.5)
[2022-02-08 05:11] LABS: Actual Bicarbonate (HCO3a) 22.6 mEq/L (22-28); Base Excess (BEa) 0.4 mEq/L (-2.0 to +3.0); CO2 Tension 27.8 mmHg (35.0-45.0); Calcium, Ionized (arterial) 1.11 mmol/L (1.12-1.30); Carboxyhemoglobin (COHb) 0.3 gm% (0.0-3.0); Hemoglobin (Hb) 9.4 g/dL (12.0-16.0); O2 Tension (PaO2), arterial 92.4 mmHg (> 70.0); Potassium - ABG Lab 4.3 mmol/L (3.70-5.30); Puncture Site RRA; pH, Arterial 7.53 (7.35-7.45)
[2022-02-08 05:26] LABS: ALT (SGPT) 13 U/L (8-55); AST (SGOT) 20 U/L (5-34); Albumin 2.3 g/dL (3.4-4.8); Alkaline Phosphatase 73 U/L (40-110); Anion Gap 15 mmol/L (10-20); BUN (Urea Nitrogen) 25 mg/dL (9.8-20.1); Bilirubin, Total 0.6 mg/dL (0.2-1.2); Calc. Creatinine Clearance 128 mL/min (70-130); Calcium 7.9 mg/dL (7.8-10.44); Carbon Dioxide 20 mmol/L (23-31); Chloride 105 mmol/L (98-107); Estimated GFR 89; Globulin 2.6 g/dL (2.4-3.5); Glucose 172 mg/dL (83-110); Phosphorus 1.8 mg/dL (2.3-4.7); Potassium 4.2 mmol/L (3.5-5.1); Protein, Total 4.9 g/dL (5.8-8.1); Sodium 136 mmol/L (136-145)
[2022-02-08] MEDS ORDERED: Magnesium 2 GM/50 ML(in water) 2 GM in Premix Bag 1 BAG IVPB SCH (06:00)
[2022-02-08] MEDS: metroNIDAZOLE 500 MG in Premix Bag 1 BAG IVPB SCH (06:56)
[2022-02-08] MEDS: Levothyroxine 100 MCG SDV SLOW IVP SCH (06:59)
[2022-02-08] MEDS: Pantoprazole 40 MG VIAL IVP SCH ×2 (08:53→20:30)
[2022-02-08] MEDS: Morphine 2 MG/ML VIAL SLOW IVP PRN ×4 (08:53→14:52)
[2022-02-08] MEDS: Aspirin Chewable 81 MG TAB PO SCH (08:53)
[2022-02-08] MEDS: PHOS-NAK 1 PKT PACK PO SCH ×2 (08:53→11:35)
[2022-02-08] MEDS: Flecainide 50 MG TAB PO SCH ×2 (08:53→20:30)
[2022-02-08] MEDS: HumaLOG 300 UNITS/3 ML VIAL SC PRN ×3 (08:54→16:33)
[2022-02-08] MEDS: Heparin 25,000 units/D5W 500 ML IV SCH (09:16)
[2022-02-08] MEDS ORDERED: Furosemide 40 MG/4 ML VIAL SLOW IVP SCH (10:00)
[2022-02-08] MEDS: Lorazepam 2 MG/ML VIAL SLOW IVP PRN (14:13)
[2022-02-08] MEDS: NOREPINEPHRINE 8 MG/250 ML-D5W 250 ML IVPB SCH (18:06)
[2022-02-08] MEDS: Metoclopramide HCl 10 MG/2 ML VIAL IVP SCH (18:43)
[2022-02-08] MEDS: Acetaminophen 500 MG TAB PO SCH (20:29)
[2022-02-08] MEDS ORDERED: Metoclopramide HCl 10 MG/2 ML VIAL IVP SCH (22:00)
[2022-02-09] MEDS: Dexmedetomidine In 0.9 % NaCl 400 MCG in Premix Bag 1 BAG IVPB SCH ×4 (03:06→19:35)
[2022-02-09] MEDS: Metoclopramide HCl 10 MG/2 ML VIAL IVP SCH ×3 (03:06→17:56)
[2022-02-09 04:58] LABS: Hemoglobin 8.7 g/dL (12.0-15.5); Mean Corpuscular HGB CONC 34.5 g/dL (32.0-36.0); Mean Corpuscular Hemoglobin 32.8 pg (27.0-33.0); Mean Corpuscular Volume 95.1 fl (81.6-98.3); Mean Platelet Volume 9.4 fl (7.4-10.4); Platelet Count 519 10x3/uL (150-450); RBC Distribution Width 15.9 % (11.5-14.5); Red Blood Cell (RBC) Count 2.65 10x6/uL (3.90-5.03); White Blood Cell (WBC) Count 11.2 10x3/uL (3.5-10.5)
[2022-02-09] MEDS: Levothyroxine Sodium 100 MCG TAB PO SCH (05:15)
[2022-02-09 05:20] LABS: Anion Gap 12 mmol/L (10-20); BUN (Urea Nitrogen) 25 mg/dL (9.8-20.1); Calc. Creatinine Clearance 139 mL/min (70-130); Carbon Dioxide 25 mmol/L (23-31); Chloride 101 mmol/L (98-107); Potassium 3.8 mmol/L (3.5-5.1); Sodium 134 mmol/L (136-145)
[2022-02-09 05:21] LABS: Estimated GFR 90; Glucose 165 mg/dL (83-110); Phosphorus 2.4 mg/dL (2.3-4.7)
[2022-02-09] MEDS ORDERED: Magnesium 2 GM/50 ML(in water) 2 GM in Premix Bag 1 BAG IVPB SCH (06:00)
[2022-02-09] MEDS: Heparin 25,000 units/D5W 500 ML IV SCH (06:44)
[2022-02-09 07:13] LABS: MDiff Complete? YES
[2022-02-09 07:16] LABS: Band 7 % (5-11); Eosinophils 4 % (0-10); Lymphocytes 16 % (21-51); Monocytes 8 % (0-10); Neutrophil 65 % (42-75)
[2022-02-09] MEDS ORDERED: Pantoprazole 40 MG VIAL ONE ×2 (07:45→07:46)
[2022-02-09] MEDS: Pantoprazole 40 MG VIAL IVP SCH ×2 (07:53→21:11)
[2022-02-09] MEDS: Flecainide 50 MG TAB PO SCH ×2 (07:53→21:12)
[2022-02-09] MEDS: Aspirin Chewable 81 MG TAB PO SCH (07:53)
[2022-02-09] MEDS: HumaLOG 300 UNITS/3 ML VIAL SC PRN ×2 (08:35→16:17)
[2022-02-09] MEDS ORDERED: Furosemide 40 MG/4 ML VIAL SLOW IVP SCH (10:30)
[2022-02-09] MEDS: Lorazepam 2 MG/ML VIAL SLOW IVP PRN (13:50)
[2022-02-09] MEDS: Morphine 2 MG/ML VIAL SLOW IVP PRN (17:19)
[2022-02-09] MEDS: Acetaminophen 500 MG TAB PO SCH (21:13)
[2022-02-10] MEDS: Metoclopramide HCl 10 MG/2 ML VIAL IVP SCH ×3 (01:08→17:34)
[2022-02-10] MEDS: Dexmedetomidine In 0.9 % NaCl 400 MCG in Premix Bag 1 BAG IVPB SCH ×3 (01:08→09:52)
[2022-02-10 05:02] LABS: #Eosinphils 0.3 10x3/uL (0.0-0.5); #Monocytes 0.9 10x3/uL (0.0-1.1); #Neutrophils 6.8 10x3/uL (1.5-8.4); %Basophils 0.4 % (0.0-2.0); %Eosinophils 3.4 % (0.0-6.0); %Lymphocytes 13.3 % (18.0-47.0); %Monocytes 8.8 % (0.0-10.0); %Neutrophils 69.9 % (40.0-75.0); Hemoglobin 8.6 g/dL (12.0-15.5); Mean Corpuscular HGB CONC 33.9 g/dL (32.0-36.0); Mean Corpuscular Hemoglobin 32.1 pg (27.0-33.0); Mean Corpuscular Volume 94.8 fl (81.6-98.3); Mean Platelet Volume 9.3 fl (7.4-10.4); Platelet Count 513 10x3/uL (150-450); RBC Distribution Width 16.1 % (11.5-14.5); Red Blood Cell (RBC) Count 2.68 10x6/uL (3.90-5.03); White Blood Cell (WBC) Count 9.7 10x3/uL (3.5-10.5)
[2022-02-10 05:10] LABS: Magnesium 1.9 mg/dL (1.6-2.6)
[2022-02-10] MEDS: Levothyroxine Sodium 100 MCG TAB PO SCH (05:42)
[2022-02-10] MEDS: Heparin 25,000 units/D5W 500 ML IV SCH (05:43)
[2022-02-10] MEDS ORDERED: Magnesium 2 GM/50 ML(in water) 2 GM in Premix Bag 1 BAG IVPB SCH (06:00)
[2022-02-10 07:02] LABS: Anion Gap 14 mmol/L (10-20); BUN (Urea Nitrogen) 21 mg/dL (9.8-20.1); Calc. Creatinine Clearance 144 mL/min (70-130); Carbon Dioxide 23 mmol/L (23-31); Chloride 102 mmol/L (98-107); Estimated GFR 91; Glucose 159 mg/dL (83-110); Potassium 3.7 mmol/L (3.5-5.1); Sodium 135 mmol/L (136-145)
[2022-02-10] MEDS: Aspirin Chewable 81 MG TAB PO SCH (07:54)
[2022-02-10] MEDS: Pantoprazole 40 MG VIAL IVP SCH ×2 (07:54→21:42)
[2022-02-10] MEDS: Flecainide 50 MG TAB PO SCH ×2 (07:55→21:43)
[2022-02-10] MEDS: ALPRAZolam 0.25 MG TAB PO PRN ×2 (12:14→21:42)
[2022-02-10] MEDS ORDERED: Furosemide 20 MG/2 ML VIAL SLOW IVP SCH (21:30)
[2022-02-10] MEDS: Acetaminophen 500 MG TAB PO SCH (21:42)
[2022-02-10] MEDS: Lidocaine 5% Patch TD SCH (22:13)
[2022-02-11] MEDS: Heparin 25,000 units/D5W 500 ML IV SCH ×2 (01:55→21:52)
[2022-02-11] MEDS: Metoclopramide HCl 10 MG/2 ML VIAL IVP SCH ×2 (02:02→09:59)
[2022-02-11 04:31] LABS: #Basophils 0.1 10x3/uL (0.0-0.2); #Eosinphils 0.1 10x3/uL (0.0-0.5); #Monocytes 1.1 10x3/uL (0.0-1.1); #Neutrophils 10.2 10x3/uL (1.5-8.4); %Basophils 0.4 % (0.0-2.0); %Eosinophils 0.8 % (0.0-6.0); %Lymphocytes 10.7 % (18.0-47.0); Hemoglobin 9.5 g/dL (12.0-15.5); Mean Corpuscular HGB CONC 33.9 g/dL (32.0-36.0); Mean Corpuscular Hemoglobin 32.2 pg (27.0-33.0); Mean Corpuscular Volume 94.9 fl (81.6-98.3); Mean Platelet Volume 9.2 fl (7.4-10.4); Platelet Count 667 10x3/uL (150-450); RBC Distribution Width 16.1 % (11.5-14.5); Red Blood Cell (RBC) Count 2.95 10x6/uL (3.90-5.03); White Blood Cell (WBC) Count 13.3 10x3/uL (3.5-10.5)
[2022-02-11 04:34] LABS: Magnesium 1.9 mg/dL (1.6-2.6)
[2022-02-11] MEDS: Levothyroxine Sodium 100 MCG TAB PO SCH (04:49)
[2022-02-11] MEDS: ALPRAZolam 0.25 MG TAB PO PRN (04:49)
[2022-02-11] MEDS ORDERED: Magnesium 2 GM/50 ML(in water) 2 GM in Premix Bag 1 BAG IVPB SCH (06:00)
[2022-02-11] MEDS: Flecainide 50 MG TAB PO SCH ×2 (08:01→21:11)
[2022-02-11] MEDS: Pantoprazole 40 MG VIAL IVP SCH ×2 (08:01→21:12)
[2022-02-11] MEDS: Aspirin Chewable 81 MG TAB PO SCH (08:01)
[2022-02-11] MEDS ORDERED: Lidocaine 5% Patch TD SCH (09:00)
[2022-02-11 09:19] LABS: Anion Gap 16 mmol/L (10-20); BUN (Urea Nitrogen) 16 mg/dL (9.8-20.1); Calc. Creatinine Clearance 139 mL/min (70-130); Calcium 8.4 mg/dL (7.8-10.44); Carbon Dioxide 25 mmol/L (23-31); Chloride 99 mmol/L (98-107); Estimated GFR 91; Glucose 135 mg/dL (83-110); Potassium 3.5 mmol/L (3.5-5.1); Sodium 136 mmol/L (136-145)
[2022-02-11] MEDS ORDERED: Potassium Chloride 40 MEQ in Premix Bag 1 BAG IVPB SCH (10:00)
[2022-02-11] MEDS ORDERED: traMADol HCl 50 MG TAB PO PRN (10:06)
[2022-02-11] MEDS: LIDOCAINE Patch Removal TOP SCH (11:30)
[2022-02-11] MEDS: Acetaminophen 325 MG TAB PO PRN (13:51)
[2022-02-11] MEDS ORDERED: Iopamidol 300 61% 100 ML VIAL FS ONE (14:40)
[2022-02-11] MEDS ORDERED: Ketorolac Tromethamine 30 MG/ML VIAL IVP PRN (16:58)
[2022-02-11] MEDS: Lactated Ringer's 1,000 ML IV SCH ×2 (18:45→19:35)
[2022-02-11] MEDS: Acetaminophen 500 MG TAB PO SCH (21:11)
[2022-02-11 22:01] LABS: Potassium 3.6 mmol/L (3.5-5.1)
[2022-02-11] MEDS: Lidocaine 5% Patch TD SCH (22:01)
[2022-02-12 04:04] LABS: #Eosinphils 0.2 10x3/uL (0.0-0.5); #Neutrophils 9.3 10x3/uL (1.5-8.4); %Basophils 0.3 % (0.0-2.0); %Eosinophils 1.6 % (0.0-6.0); %Lymphocytes 10.9 % (18.0-47.0); %Monocytes 8.3 % (0.0-10.0); %Neutrophils 77.5 % (40.0-75.0); Hemoglobin 9.1 g/dL (12.0-15.5); Mean Corpuscular HGB CONC 33.8 g/dL (32.0-36.0); Mean Corpuscular Hemoglobin 32.4 pg (27.0-33.0); Mean Corpuscular Volume 95.7 fl (81.6-98.3); Mean Platelet Volume 9.3 fl (7.4-10.4); Platelet Count 601 10x3/uL (150-450); RBC Distribution Width 16.8 % (11.5-14.5); Red Blood Cell (RBC) Count 2.81 10x6/uL (3.90-5.03)
[2022-02-12 04:26] LABS: Anion Gap 16 mmol/L (10-20); BUN (Urea Nitrogen) 13 mg/dL (9.8-20.1); Calc. Creatinine Clearance 141 mL/min (70-130); Calcium 8.2 mg/dL (7.8-10.44); Carbon Dioxide 25 mmol/L (23-31); Chloride 102 mmol/L (98-107); Estimated GFR 91; Glucose 117 mg/dL (83-110); Magnesium 1.7 mg/dL (1.6-2.6); Potassium 3.7 mmol/L (3.5-5.1); Sodium 139 mmol/L (136-145)
[2022-02-12] MEDS: Levothyroxine Sodium 100 MCG TAB PO SCH (05:54)
[2022-02-12] MEDS ORDERED: Magnesium 2 GM/50 ML(in water) 2 GM in Premix Bag 1 BAG IVPB SCH ×2 (06:00→08:30)
[2022-02-12] MEDS: Flecainide 50 MG TAB PO SCH ×2 (08:22→22:00)
[2022-02-12] MEDS: Aspirin Chewable 81 MG TAB PO SCH (08:22)
[2022-02-12] MEDS: Pantoprazole 40 MG VIAL IVP SCH ×2 (08:22→22:00)
[2022-02-12] MEDS: Lactated Ringer's 1,000 ML IV SCH ×2 (08:41→21:59)
[2022-02-12 09:28] LABS: INR-International Normal Ratio 1.1; Prothrombin Time 12.3 sec (9.5-12.1)
[2022-02-12] MEDS: LIDOCAINE Patch Removal TOP SCH (11:52)
[2022-02-12] MEDS: Heparin 25,000 units/D5W 500 ML IV SCH (21:21)
[2022-02-12] MEDS: Acetaminophen 500 MG TAB PO SCH (21:59)
[2022-02-12] MEDS: Lidocaine 5% Patch TD SCH (22:01)
[2022-02-13 03:44] LABS: #Basophils 0.1 10x3/uL (0.0-0.2); #Eosinphils 0.2 10x3/uL (0.0-0.5); #Monocytes 1.2 10x3/uL (0.0-1.1); #Neutrophils 9.8 10x3/uL (1.5-8.4); %Basophils 0.5 % (0.0-2.0); %Eosinophils 1.3 % (0.0-6.0); %Lymphocytes 10.7 % (18.0-47.0); %Monocytes 9.1 % (0.0-10.0); %Neutrophils 77.7 % (40.0-75.0); Hemoglobin 8.7 g/dL (12.0-15.5); Mean Corpuscular Hemoglobin 31.9 pg (27.0-33.0); Mean Corpuscular Volume 96.7 fl (81.6-98.3); Mean Platelet Volume 9.3 fl (7.4-10.4); Platelet Count 604 10x3/uL (150-450); RBC Distribution Width 16.8 % (11.5-14.5); Red Blood Cell (RBC) Count 2.73 10x6/uL (3.90-5.03); White Blood Cell (WBC) Count 12.6 10x3/uL (3.5-10.5)
[2022-02-13 04:00] LABS: ALT (SGPT) 10 U/L (8-55); AST (SGOT) 16 U/L (5-34); Albumin 2.4 g/dL (3.4-4.8); Alkaline Phosphatase 72 U/L (40-110); Anion Gap 14 mmol/L (10-20); BUN (Urea Nitrogen) 10 mg/dL (9.8-20.1); Bilirubin, Total 0.8 mg/dL (0.2-1.2); Calc. Creatinine Clearance 146 mL/min (70-130); Calcium 8.1 mg/dL (7.8-10.44); Carbon Dioxide 25 mmol/L (23-31); Chloride 102 mmol/L (98-107); Estimated GFR 92; Globulin 2.8 g/dL (2.4-3.5); Glucose 117 mg/dL (83-110); Magnesium 1.8 mg/dL (1.6-2.6); Potassium 3.4 mmol/L (3.5-5.1); Protein, Total 5.2 g/dL (5.8-8.1); Sodium 138 mmol/L (136-145)
[2022-02-13] MEDS ORDERED: Magnesium 2 GM/50 ML(in water) 2 GM in Premix Bag 1 BAG IVPB SCH (06:00)
[2022-02-13] MEDS: Potassium Chloride 20 MEQ in Premix Bag 1 BAG IVPB SCH ×2 (06:04→08:03)
[2022-02-13] MEDS: Levothyroxine Sodium 100 MCG TAB PO SCH (06:04)
[2022-02-13] MEDS: Pantoprazole 40 MG VIAL IVP SCH ×2 (08:02→21:08)
[2022-02-13] MEDS: Flecainide 50 MG TAB PO SCH ×2 (08:03→21:08)
[2022-02-13] MEDS: Aspirin Chewable 81 MG TAB PO SCH (08:03)
[2022-02-13 09:20] LABS: INR-International Normal Ratio 1.1; Prothrombin Time 11.7 sec (9.5-12.1)
[2022-02-13] MEDS: LIDOCAINE Patch Removal TOP SCH (11:45)
[2022-02-13] MEDS: Lactated Ringer's 1,000 ML IV SCH (11:45)
[2022-02-13] MEDS: ALPRAZolam 0.25 MG TAB PO PRN (12:06)
[2022-02-13] MEDS: Labetalol HCl 100 MG/20 ML VIAL SLOW IVP PRN (17:52)
[2022-02-13] MEDS: Fat Emulsion 250 ML IVPB SCH (19:58)
[2022-02-13] MEDS: D15W-AA 5% with Lytes 2,000 ML IV SCH (19:59)
[2022-02-13] MEDS ORDERED: Pantoprazole 40 MG VIAL ONE (21:02)
[2022-02-13] MEDS: Acetaminophen 500 MG TAB PO SCH (21:06)
[2022-02-13] MEDS: Enoxaparin Sodium 120 MG/0.8 ML SYRINGE SC SCH (21:07)
[2022-02-13] MEDS: Lidocaine 5% Patch TD SCH (23:33)
[2022-02-14] MEDS: Lactated Ringer's 1,000 ML IV SCH (02:56)
[2022-02-14 03:56] LABS: #Basophils 0.1 10x3/uL (0.0-0.2); #Eosinphils 0.1 10x3/uL (0.0-0.5); #Monocytes 1.1 10x3/uL (0.0-1.1); #Neutrophils 8.9 10x3/uL (1.5-8.4); %Basophils 0.4 % (0.0-2.0); %Eosinophils 1.2 % (0.0-6.0); %Lymphocytes 11.1 % (18.0-47.0); %Monocytes 9.3 % (0.0-10.0); %Neutrophils 77.2 % (40.0-75.0); Hemoglobin 8.7 g/dL (12.0-15.5); Mean Corpuscular HGB CONC 33.1 g/dL (32.0-36.0); Mean Corpuscular Hemoglobin 32.2 pg (27.0-33.0); Mean Corpuscular Volume 97.4 fl (81.6-98.3); Mean Platelet Volume 9.6 fl (7.4-10.4); Platelet Count 547 10x3/uL (150-450); RBC Distribution Width 17.1 % (11.5-14.5); White Blood Cell (WBC) Count 11.6 10x3/uL (3.5-10.5)
[2022-02-14 04:14] LABS: ALT (SGPT) 7 U/L (8-55); AST (SGOT) 18 U/L (5-34); Albumin 2.3 g/dL (3.4-4.8); Alkaline Phosphatase 70 U/L (40-110); Anion Gap 11 mmol/L (10-20); BUN (Urea Nitrogen) 13 mg/dL (9.8-20.1); Bilirubin, Total 0.7 mg/dL (0.2-1.2); Calc. Creatinine Clearance 138 mL/min (70-130); Calcium 8.1 mg/dL (7.8-10.44); Carbon Dioxide 28 mmol/L (23-31); Chloride 102 mmol/L (98-107); Estimated GFR 90; Globulin 2.8 g/dL (2.4-3.5); Glucose 189 mg/dL (83-110); Magnesium 1.8 mg/dL (1.6-2.6); Potassium 3.8 mmol/L (3.5-5.1); Protein, Total 5.1 g/dL (5.8-8.1); Sodium 137 mmol/L (136-145)
[2022-02-14 04:15] LABS: Cardiac Risk 2.6 (Less than 4.5); Cholesterol 83 mg/dl (< 200 Desired); HDL Cholesterol 32 mg/dL (>60 Neg Risk); LDL Cholesterol, Calculated 34 mg/dL; Phosphorus 2.7 mg/dL (2.3-4.7); Triglycerides 83 mg/dL (Less than 150)
[2022-02-14] MEDS: HumaLOG 300 UNITS/3 ML VIAL SC PRN ×6 (04:20→23:56)
[2022-02-14] MEDS ORDERED: Potassium Chloride 20 MEQ in Premix Bag 1 BAG IVPB SCH ×2 (04:30→05:00)
[2022-02-14] MEDS ORDERED: Magnesium 2 GM/50 ML(in water) 2 GM in Premix Bag 1 BAG IVPB SCH (05:00)
[2022-02-14] MEDS ORDERED: Furosemide 40 MG/4 ML VIAL SLOW IVP SCH (05:00)
[2022-02-14] MEDS: Levothyroxine Sodium 100 MCG TAB PO SCH (05:03)
[2022-02-14] MEDS: Aspirin Chewable 81 MG TAB PO SCH (08:23)
[2022-02-14] MEDS: Flecainide 50 MG TAB PO SCH ×2 (08:23→20:55)
[2022-02-14] MEDS: Enoxaparin Sodium 120 MG/0.8 ML SYRINGE SC SCH ×2 (08:23→20:55)
[2022-02-14] MEDS: Pantoprazole 40 MG VIAL IVP SCH ×2 (08:23→20:56)
[2022-02-14 10:05] LABS: Potassium 5.2 mmol/L (3.5-5.1)
[2022-02-14] MEDS: LIDOCAINE Patch Removal TOP SCH (11:06)
[2022-02-14 11:58] LABS: Potassium 6.6 mmol/L (3.5-5.1)
[2022-02-14 12:37] LABS: Potassium 3.6 mmol/L (3.5-5.1)
[2022-02-14] MEDS ORDERED: MANGANESE IV SCH (17:00)
[2022-02-14] MEDS ORDERED: MULTIVITAMINS IV SCH (17:00)
[2022-02-14] MEDS ORDERED: ZINC IV SCH (17:00)
[2022-02-14] MEDS ORDERED: Fat Emulsion 250 ML IVPB SCH ×2 (17:00→20:00)
[2022-02-14] MEDS ORDERED: SELENIUM IV SCH (17:00)
[2022-02-14] MEDS ORDERED: COPPER IV SCH (17:00)
[2022-02-14] MEDS ORDERED: [UNRECOGNIZED DRUG - OTHER] IV SCH (17:00)
[2022-02-14 17:11] LABS: SARS-CoV-2 NAA Rapid Test Not Detected (NotDetected)
[2022-02-14] MEDS: Fat Emulsion 250 ML IVPB SCH (20:54)
[2022-02-14] MEDS: D15W-AA 5% with Lytes 2,000 ML IV SCH (20:54)
[2022-02-14] MEDS: Acetaminophen 500 MG TAB PO SCH (20:55)
[2022-02-14] MEDS: Lidocaine 5% Patch TD SCH (23:56)
[2022-02-15 04:44] LABS: #Basophils 0.1 10x3/uL (0.0-0.2); #Eosinphils 0.2 10x3/uL (0.0-0.5); #Neutrophils 5.1 10x3/uL (1.5-8.4); %Basophils 0.8 % (0.0-2.0); %Eosinophils 2.5 % (0.0-6.0); %Lymphocytes 17.2 % (18.0-47.0); %Monocytes 12.5 % (0.0-10.0); %Neutrophils 66.5 % (40.0-75.0); Hemoglobin 9.1 g/dL (12.0-15.5); Mean Corpuscular HGB CONC 32.7 g/dL (32.0-36.0); Mean Corpuscular Hemoglobin 32.2 pg (27.0-33.0); Mean Corpuscular Volume 98.2 fl (81.6-98.3); Platelet Count 581 10x3/uL (150-450); RBC Distribution Width 17.2 % (11.5-14.5); Red Blood Cell (RBC) Count 2.83 10x6/uL (3.90-5.03); White Blood Cell (WBC) Count 7.6 10x3/uL (3.5-10.5)
[2022-02-15 05:02] LABS: ALT (SGPT) 6 U/L (8-55); AST (SGOT) 14 U/L (5-34); Albumin 2.6 g/dL (3.4-4.8); Alkaline Phosphatase 71 U/L (40-110); Anion Gap 12 mmol/L (10-20); BUN (Urea Nitrogen) 16 mg/dL (9.8-20.1); Bilirubin, Total 0.6 mg/dL (0.2-1.2); Calc. Creatinine Clearance 131 mL/min (70-130); Calcium 8.5 mg/dL (7.8-10.44); Carbon Dioxide 29 mmol/L (23-31); Cardiac Risk 2.9 (Less than 4.5); Chloride 100 mmol/L (98-107); Cholesterol 98 mg/dl (< 200 Desired); Estimated GFR 89; Globulin 3.1 g/dL (2.4-3.5); Glucose 151 mg/dL (83-110); HDL Cholesterol 34 mg/dL (>60 Neg Risk); LDL Cholesterol, Calculated 43 mg/dL; Magnesium 1.8 mg/dL (1.6-2.6); Potassium 3.8 mmol/L (3.5-5.1); Protein, Total 5.7 g/dL (5.8-8.1); Sodium 137 mmol/L (136-145); Triglycerides 104 mg/dL (Less than 150)
[2022-02-15] MEDS ORDERED: Magnesium 2 GM/50 ML(in water) 2 GM in Premix Bag 1 BAG IVPB SCH (06:00)
[2022-02-15] MEDS: Levothyroxine Sodium 100 MCG TAB PO SCH (06:23)
[2022-02-15] MEDS: Apixaban 5 MG TAB PO SCH ×2 (08:17→20:35)
[2022-02-15] MEDS: Flecainide 50 MG TAB PO SCH ×2 (08:17→20:34)
[2022-02-15] MEDS: Pantoprazole 40 MG VIAL IVP SCH (08:17)
[2022-02-15] MEDS: Aspirin Chewable 81 MG TAB PO SCH (08:17)
[2022-02-15] MEDS: HumaLOG 300 UNITS/3 ML VIAL SC PRN (08:46)
[2022-02-15] MEDS: LIDOCAINE Patch Removal TOP SCH (11:28)
[2022-02-15] MEDS ORDERED: Polyethylene Glycol 3350 17 GM Packet PO SCH (14:00)
[2022-02-15] MEDS ORDERED: MULTIVITAMINS IV SCH (20:00)
[2022-02-15] MEDS ORDERED: MAGNESIUM SULFATE IV SCH (20:00)
[2022-02-15] MEDS ORDERED: [UNRECOGNIZED DRUG - OTHER] IV SCH (20:00)
[2022-02-15] MEDS: Acetaminophen 500 MG TAB PO SCH (20:34)
[2022-02-15] MEDS: Fat Emulsion 250 ML IVPB SCH (20:35)
[2022-02-15] MEDS: Lidocaine 5% Patch TD SCH (23:46)
[2022-02-16] MEDS: Levothyroxine Sodium 100 MCG TAB PO SCH (05:52)
[2022-02-16] MEDS: Senokot S 8.6-50 MG TAB PO SCH ×2 (08:40→21:00)
[2022-02-16] MEDS: Apixaban 5 MG TAB PO SCH ×2 (08:40→21:00)
[2022-02-16] MEDS: Aspirin Chewable 81 MG TAB PO SCH (08:40)
[2022-02-16] MEDS: Flecainide 50 MG TAB PO SCH ×2 (08:40→21:01)
[2022-02-16] MEDS: Polyethylene Glycol 3350 17 GM Packet PO SCH (08:40)
[2022-02-16 10:52] LABS: #Basophils 0.1 10x3/uL (0.0-0.2); #Eosinphils 0.2 10x3/uL (0.0-0.5); #Monocytes 0.8 10x3/uL (0.0-1.1); #Neutrophils 4.3 10x3/uL (1.5-8.4); %Basophils 0.9 % (0.0-2.0); %Eosinophils 3.1 % (0.0-6.0); %Lymphocytes 15.1 % (18.0-47.0); %Monocytes 12.1 % (0.0-10.0); %Neutrophils 68.3 % (40.0-75.0); Hemoglobin 9.8 g/dL (12.0-15.5); Mean Corpuscular HGB CONC 33.4 g/dL (32.0-36.0); Mean Corpuscular Hemoglobin 32.5 pg (27.0-33.0); Mean Platelet Volume 9.6 fl (7.4-10.4); Platelet Count 491 10x3/uL (150-450); RBC Distribution Width 17.1 % (11.5-14.5); Red Blood Cell (RBC) Count 3.02 10x6/uL (3.90-5.03); White Blood Cell (WBC) Count 6.4 10x3/uL (3.5-10.5)
[2022-02-16 11:13] LABS: ALT (SGPT) 6 U/L (8-55); AST (SGOT) 14 U/L (5-34); Albumin 2.7 g/dL (3.4-4.8); Alkaline Phosphatase 71 U/L (40-110); Anion Gap 12 mmol/L (10-20); BUN (Urea Nitrogen) 15 mg/dL (9.8-20.1); Bilirubin, Total 0.6 mg/dL (0.2-1.2); Calc. Creatinine Clearance 142 mL/min (70-130); Calcium 8.6 mg/dL (7.8-10.44); Carbon Dioxide 26 mmol/L (23-31); Cardiac Risk 4.4 (Less than 4.5); Chloride 103 mmol/L (98-107); Cholesterol 118 mg/dl (< 200 Desired); Estimated GFR 91; Globulin 3.1 g/dL (2.4-3.5); Glucose 189 mg/dL (83-110); HDL Cholesterol 27 mg/dL (>60 Neg Risk); LDL Cholesterol, Calculated 57 mg/dL; Magnesium 2.1 mg/dL (1.6-2.6); Phosphorus 3.2 mg/dL (2.3-4.7); Potassium 3.8 mmol/L (3.5-5.1); Protein, Total 5.8 g/dL (5.8-8.1); Sodium 137 mmol/L (136-145); Triglycerides 168 mg/dL (Less than 150)
[2022-02-16] MEDS: LIDOCAINE Patch Removal TOP SCH (12:00)
[2022-02-16] MEDS: Fat Emulsion 250 ML IVPB SCH (20:59)
[2022-02-16] MEDS: Acetaminophen 500 MG TAB PO SCH (21:00)
[2022-02-16] MEDS: Multivitamins, Adult 10 ML, ZINC/COPPER/MANGANESE/SELENIUM 1 ML in D15W-AA 5% with Lyte... IV SCH (21:00)
[2022-02-16] MEDS: Labetalol HCl 100 MG/20 ML VIAL SLOW IVP PRN (22:15)
[2022-02-16] MEDS: Lidocaine 5% Patch TD SCH (22:18)
[2022-02-17 05:55] LABS: ALT (SGPT) 7 U/L (8-55); AST (SGOT) 20 U/L (5-34); Albumin 2.6 g/dL (3.4-4.8); Alkaline Phosphatase 64 U/L (40-110); Anion Gap 13 mmol/L (10-20); BUN (Urea Nitrogen) 17 mg/dL (9.8-20.1); Bilirubin, Total 0.5 mg/dL (0.2-1.2); Calc. Creatinine Clearance 142 mL/min (70-130); Calcium 8.4 mg/dL (7.8-10.44); Carbon Dioxide 22 mmol/L (23-31); Chloride 104 mmol/L (98-107); Cholesterol 119 mg/dl (< 200 Desired); Estimated GFR 91; Globulin 3.2 g/dL (2.4-3.5); Glucose 205 mg/dL (83-110); HDL Cholesterol 24 mg/dL (>60 Neg Risk); LDL Cholesterol, Calculated 51 mg/dL; Phosphorus 3.4 mg/dL (2.3-4.7); Potassium 4.3 mmol/L (3.5-5.1); Protein, Total 5.8 g/dL (5.8-8.1); Sodium 135 mmol/L (136-145); Triglycerides 220 mg/dL (Less than 150)
[2022-02-17] MEDS ORDERED: Magnesium 2 GM/50 ML(in water) 2 GM in Premix Bag 1 BAG IVPB SCH (06:15)
[2022-02-17] MEDS: Levothyroxine Sodium 100 MCG TAB PO SCH (06:16)
[2022-02-17] MEDS: Senokot S 8.6-50 MG TAB PO SCH ×2 (09:05→21:19)
[2022-02-17] MEDS: Apixaban 5 MG TAB PO SCH ×2 (09:05→21:03)
[2022-02-17] MEDS: Flecainide 50 MG TAB PO SCH ×2 (09:05→21:05)
[2022-02-17] MEDS: Polyethylene Glycol 3350 17 GM Packet PO SCH (09:05)
[2022-02-17] MEDS: Aspirin Chewable 81 MG TAB PO SCH (09:05)
[2022-02-17] MEDS ORDERED: HYDROcodone/Acetaminophen 7.5/325 mg Tablet PO PRN (09:56)
[2022-02-17] MEDS: LIDOCAINE Patch Removal TOP SCH (11:09)
[2022-02-17] MEDS: Fat Emulsion 250 ML IVPB SCH (20:41)
[2022-02-17] MEDS: Multivitamins, Adult 10 ML, ZINC/COPPER/MANGANESE/SELENIUM 1 ML in D15W-AA 5% with Lyte... IV SCH (20:42)
[2022-02-17] MEDS: Acetaminophen 500 MG TAB PO SCH (21:04)
[2022-02-17] MEDS: Lidocaine 5% Patch TD SCH (23:45)
[2022-02-18] MEDS: Levothyroxine Sodium 100 MCG TAB PO SCH (06:06)
[2022-02-18] MEDS: LIDOCAINE Patch Removal TOP SCH (11:00)
[2022-02-18] MEDS: Flecainide 50 MG TAB PO SCH ×2 (11:10→20:40)
[2022-02-18] MEDS: Aspirin Chewable 81 MG TAB PO SCH (11:11)
[2022-02-18] MEDS: Apixaban 5 MG TAB PO SCH ×2 (11:11→20:41)
[2022-02-18] MEDS: Senokot S 8.6-50 MG TAB PO SCH ×2 (11:14→20:41)
[2022-02-18] MEDS: Polyethylene Glycol 3350 17 GM Packet PO SCH (11:14)
[2022-02-18] MEDS: ALPRAZolam 0.25 MG TAB PO PRN ×2 (14:45→20:41)
[2022-02-18] MEDS: Acetaminophen 500 MG TAB PO SCH (20:41)
[2022-02-19] MEDS: Lidocaine 5% Patch TD SCH (00:17)
[2022-02-19] MEDS: Levothyroxine Sodium 100 MCG TAB PO SCH (06:45)
[2022-02-19] MEDS: Aspirin Chewable 81 MG TAB PO SCH (08:51)
[2022-02-19] MEDS: Flecainide 50 MG TAB PO SCH ×2 (08:51→21:02)
[2022-02-19] MEDS: ALPRAZolam 0.25 MG TAB PO PRN ×2 (08:52→23:50)
[2022-02-19] MEDS: Apixaban 5 MG TAB PO SCH ×2 (08:52→21:02)
[2022-02-19] MEDS: Polyethylene Glycol 3350 17 GM Packet PO SCH (08:53)
[2022-02-19] MEDS: Senokot S 8.6-50 MG TAB PO SCH ×2 (08:53→21:02)
[2022-02-19] MEDS: LIDOCAINE Patch Removal TOP SCH (11:00)
[2022-02-19] MEDS: Acetaminophen 500 MG TAB PO SCH (21:02)
[2022-02-20] MEDS: Lidocaine 5% Patch TD SCH ×3 (01:45→23:41)
[2022-02-20] MEDS: Levothyroxine Sodium 100 MCG TAB PO SCH (05:26)
[2022-02-20] MEDS: ALPRAZolam 0.25 MG TAB PO PRN ×2 (09:05→21:47)
[2022-02-20] MEDS: Apixaban 5 MG TAB PO SCH ×2 (09:05→21:47)
[2022-02-20] MEDS: Flecainide 50 MG TAB PO SCH ×2 (09:05→21:47)
[2022-02-20] MEDS: Aspirin Chewable 81 MG TAB PO SCH (09:06)
[2022-02-20] MEDS: Polyethylene Glycol 3350 17 GM Packet PO SCH (09:06)
[2022-02-20] MEDS: Senokot S 8.6-50 MG TAB PO SCH ×2 (09:06→21:47)
[2022-02-20] MEDS: LIDOCAINE Patch Removal TOP SCH (13:03)
[2022-02-20] MEDS: Acetaminophen 500 MG TAB PO SCH (21:47)
[2022-02-21] MEDS: Levothyroxine Sodium 100 MCG TAB PO SCH (06:07)
[2022-02-21] MEDS: Flecainide 50 MG TAB PO SCH ×2 (09:02→20:46)
[2022-02-21] MEDS: Apixaban 5 MG TAB PO SCH ×2 (09:02→20:45)
[2022-02-21] MEDS: Polyethylene Glycol 3350 17 GM Packet PO SCH (09:02)
[2022-02-21] MEDS: ALPRAZolam 0.25 MG TAB PO PRN ×2 (09:02→20:45)
[2022-02-21] MEDS: Aspirin Chewable 81 MG TAB PO SCH (09:02)
[2022-02-21] MEDS: Senokot S 8.6-50 MG TAB PO SCH ×2 (09:02→20:55)
[2022-02-21] MEDS: LIDOCAINE Patch Removal TOP SCH (10:34)
[2022-02-21] MEDS: Acetaminophen 500 MG TAB PO SCH (20:44)
[2022-02-21] MEDS: Ciprofloxacin 500 MG TAB PO SCH (22:10)
[2022-02-21] MEDS: Lidocaine 5% Patch TD SCH (23:15)
[2022-02-22] MEDS: Levothyroxine Sodium 100 MCG TAB PO SCH (05:37)
[2022-02-22] MEDS: Senokot S 8.6-50 MG TAB PO SCH ×2 (09:10→21:07)
[2022-02-22] MEDS: Polyethylene Glycol 3350 17 GM Packet PO SCH (09:10)
[2022-02-22] MEDS: Apixaban 5 MG TAB PO SCH ×2 (09:14→21:07)
[2022-02-22] MEDS: Flecainide 50 MG TAB PO SCH ×2 (09:14→21:06)
[2022-02-22] MEDS: Ciprofloxacin 500 MG TAB PO SCH ×2 (09:14→21:07)
[2022-02-22] MEDS: Aspirin Chewable 81 MG TAB PO SCH (09:14)
[2022-02-22] MEDS: LIDOCAINE Patch Removal TOP SCH (10:23)
[2022-02-22] MEDS: Acetaminophen 500 MG TAB PO SCH (21:07)
[2022-02-23] MEDS: Lidocaine 5% Patch TD SCH ×2 (01:06→22:17)
[2022-02-23] MEDS: Levothyroxine Sodium 100 MCG TAB PO SCH (05:58)
[2022-02-23] MEDS: Apixaban 5 MG TAB PO SCH ×2 (10:25→20:17)
[2022-02-23] MEDS: Flecainide 50 MG TAB PO SCH ×2 (10:25→20:18)
[2022-02-23] MEDS: Polyethylene Glycol 3350 17 GM Packet PO SCH (10:26)
[2022-02-23] MEDS: Aspirin Chewable 81 MG TAB PO SCH (10:26)
[2022-02-23] MEDS: Ciprofloxacin 500 MG TAB PO SCH ×2 (10:26→20:18)
[2022-02-23] MEDS: LIDOCAINE Patch Removal TOP SCH (10:27)
[2022-02-23] MEDS: Senokot S 8.6-50 MG TAB PO SCH ×2 (10:27→20:17)
[2022-02-23] MEDS: Acetaminophen 500 MG TAB PO SCH (20:16)
[2022-02-24] MEDS: Levothyroxine Sodium 100 MCG TAB PO SCH (06:07)
[2022-02-24] MEDS: Flecainide 50 MG TAB PO SCH ×2 (08:39→19:57)
[2022-02-24] MEDS: Polyethylene Glycol 3350 17 GM Packet PO SCH (08:40)
[2022-02-24] MEDS: Apixaban 5 MG TAB PO SCH ×2 (08:40→19:57)
[2022-02-24] MEDS: Aspirin Chewable 81 MG TAB PO SCH (08:40)
[2022-02-24] MEDS: Acetaminophen 325 MG TAB PO PRN (08:43)
[2022-02-24] MEDS: Senokot S 8.6-50 MG TAB PO SCH ×2 (08:49→20:11)
[2022-02-24 10:02] LABS: Bilirubin Neg (Negative); Blood, Urine 250 (Negative); CAUTI Indications for Culture Fever or rigors; Clarity Cloudy (Clear); Glucose, Urine (Dipstick) Normal (Negative); Ketone, Urine Negative (Negative); Leukocyte 500 (Negative); Nitrite Negative (Negative); Protein, Urine (Dipstick) 30 mg/dl (Neg-Trace); Urobilinogen Normal mg/dL (Less than 2)
[2022-02-24 10:04] LABS: Urine Culture Reflex No No
[2022-02-24] MEDS: Ciprofloxacin 500 MG TAB PO SCH ×2 (10:05→19:58)
[2022-02-24 10:33] LABS: Bacteria/HPF Rare-Few HPF (None Seen); RBC/HPF 21-50 HPF (0-3); Squamous Epithelial 0-3 HPF (0-3); Yeast-Budding 1+ HPF (None Seen)
[2022-02-24] MEDS: LIDOCAINE Patch Removal TOP SCH (11:21)
[2022-02-24] MEDS: Acetaminophen 500 MG TAB PO SCH (19:58)
[2022-02-25] MEDS: Lidocaine 5% Patch TD SCH ×2 (04:37→21:26)
[2022-02-25] MEDS: Levothyroxine Sodium 100 MCG TAB PO SCH (05:53)
[2022-02-25] MEDS: Flecainide 50 MG TAB PO SCH ×2 (08:46→21:25)
[2022-02-25] MEDS: Apixaban 5 MG TAB PO SCH ×2 (08:46→21:25)
[2022-02-25] MEDS: Aspirin Chewable 81 MG TAB PO SCH (08:46)
[2022-02-25] MEDS: Senokot S 8.6-50 MG TAB PO SCH ×2 (08:46→21:30)
[2022-02-25] MEDS: Polyethylene Glycol 3350 17 GM Packet PO SCH (08:48)
[2022-02-25] MEDS: Ciprofloxacin 500 MG TAB PO SCH ×2 (11:47→21:26)
[2022-02-25] MEDS: LIDOCAINE Patch Removal TOP SCH (11:49)
[2022-02-25] MEDS: Acetaminophen 500 MG TAB PO SCH (21:25)
[2022-02-26 05:17] LABS: Hemoglobin 9.7 g/dL (12.0-15.5); Mean Corpuscular HGB CONC 33.4 g/dL (32.0-36.0); Mean Corpuscular Hemoglobin 32.7 pg (27.0-33.0); Mean Corpuscular Volume 97.6 fl (81.6-98.3); Mean Platelet Volume 9.8 fl (7.4-10.4); Platelet Count 259 10x3/uL (150-450); RBC Distribution Width 16.2 % (11.5-14.5); Red Blood Cell (RBC) Count 2.97 10x6/uL (3.90-5.03); White Blood Cell (WBC) Count 5.5 10x3/uL (3.5-10.5)
[2022-02-26 05:31] LABS: Anion Gap 10 mmol/L (10-20); BUN (Urea Nitrogen) 14 mg/dL (9.8-20.1); Calc. Creatinine Clearance 110 mL/min (70-130); Calcium 8.6 mg/dL (7.8-10.44); Carbon Dioxide 25 mmol/L (23-31); Chloride 98 mmol/L (98-107); Estimated GFR 85; Glucose 112 mg/dL (83-110); Potassium 3.9 mmol/L (3.5-5.1); Sodium 129 mmol/L (136-145)
[2022-02-26] MEDS: Levothyroxine Sodium 100 MCG TAB PO SCH (06:05)
[2022-02-26 06:31] LABS: MDiff Complete? YES; Platelet Morphology Comment Appears Adequate
[2022-02-26 06:35] LABS: Band 3 % (5-11); Eosinophils 1 % (0-10); Lymphocytes 26 % (21-51); Metamyelocyte 2 % (0-0); Monocytes 14 % (0-10); Neutrophil 50 % (42-75); Reactive Lymphocytes 2 % (0-10)
[2022-02-26] MEDS: Ciprofloxacin 500 MG TAB PO SCH (09:42)
[2022-02-26] MEDS: Senokot S 8.6-50 MG TAB PO SCH (09:42)
[2022-02-26] MEDS: Aspirin Chewable 81 MG TAB PO SCH (09:42)
[2022-02-26] MEDS: Apixaban 5 MG TAB PO SCH (09:42)
[2022-02-26] MEDS: Flecainide 50 MG TAB PO SCH (09:42)
[2022-02-26] MEDS: Polyethylene Glycol 3350 17 GM Packet PO SCH (09:45)
[2022-02-26 11:53] VITALS: TEMP 98.2
[2022-02-26] MEDS: LIDOCAINE Patch Removal TOP SCH (13:33)
[2022-02-26 13:46] VITALS: BMI 41.6
[2022-02-26 14:05] VITALS: BP 119/56
== END 2022-02-26 16:06 | DRG 469 ==
LOC: CSHSDC 09:16 → CSHTELE 15:41 → OBSVTOIN 01-31 13:51 → CSHICU 02-02 13:40 → CSHIMCU 02-04 09:28 → CSHTELE 02-17 17:31
PROVIDERS: ADMIT Orthopaedic Surgery; ATTEND Family Medicine
PROC: 0SRB01Z Replacement of Left Hip Joint with Metal Synthetic Substitute, Open Approach (ICD-10-PCS; principal; 2022-01-30)
PROC: 0DTF0ZZ Resection of Right Large Intestine, Open Approach (ICD-10-PCS; 2022-02-02)
PROC: 0BH17EZ Insertion of Endotracheal Airway into Trachea, Via Natural or Artificial Opening (ICD-10-PCS; 2022-02-02)
PROC: 5A1955Z Respiratory Ventilation, Greater than 96 Consecutive Hours (ICD-10-PCS; 2022-02-02)
PROC: 30233N1 Transfusion of Nonautologous Red Blood Cells into Peripheral Vein, Percutaneous Approach (ICD-10-PCS; 2022-02-02)
PROC: 3E043XZ Introduction of Vasopressor into Central Vein, Percutaneous Approach (ICD-10-PCS; 2022-02-03)
PROC: 0D180ZL Bypass Small Intestine to Transverse Colon, Open Approach (ICD-10-PCS; 2022-02-04)
PROC: 3E0436Z Introduction of Nutritional Substance into Central Vein, Percutaneous Approach (ICD-10-PCS; 2022-02-13)
PROC: 02HV33Z Insertion of Infusion Device into Superior Vena Cava, Percutaneous Approach (ICD-10-PCS; 2022-02-13)
PROC: B548ZZA Ultrasonography of Superior Vena Cava, Guidance (ICD-10-PCS; 2022-02-13)
DX: M16.12 Unilateral primary osteoarthritis, left hip (principal); A41.9 Sepsis, unspecified organism; R65.21 Severe sepsis with septic shock; J96.01 Acute respiratory failure with hypoxia; R57.8 Other shock; K63.1 Perforation of intestine (nontraumatic); I48.20 Chronic atrial fibrillation, unspecified; N17.9 Acute kidney failure, unspecified; K55.9 Vascular disorder of intestine, unspecified; K56.7 Ileus, unspecified; Z68.41 Body mass index [BMI] 40.0-44.9, adult; D62 Acute posthemorrhagic anemia; Z20.822 Contact with and (suspected) exposure to COVID-19; E66.01 Morbid (severe) obesity due to excess calories; E11.9 Type 2 diabetes mellitus without complications; E03.9 Hypothyroidism, unspecified; I10 Essential (primary) hypertension; K59.81 Ogilvie syndrome; R53.81 Other malaise; E78.5 Hyperlipidemia, unspecified; K59.00 Constipation, unspecified; Z96.651 Presence of right artificial knee joint; G47.33 Obstructive sleep apnea (adult) (pediatric); Z79.01 Long term (current) use of anticoagulants; Z88.0 Allergy status to penicillin; Z88.2 Allergy status to sulfonamides; Z91.040 Latex allergy status; Z79.890 Hormone replacement therapy; Z79.899 Other long term (current) drug therapy; Z79.84 Long term (current) use of oral hypoglycemic drugs; Z79.82 Long term (current) use of aspirin; Z91.198 Patient's noncompliance with other medical treatment and regimen for other reason; Z90.710 Acquired absence of both cervix and uterus
CPT/HCPCS: 36415; 36416; 36430; 36569; 36600; 71045; 74018; 74019; 74150; 74177; 80048; 80053; 80061; 81001; 82533; 82805; 83605; 83735; 83880; 84100; 84134; 84145; 84484; 85014; 85018; 85025; 85610; 85730; 86850; 86900; 86901; 87040; 87070; 87205; 87811; 88307; 93306; 94002; 94003; 94150; 94660; 94760; A4649; C1713; C1751; C1765; C1776; C9113; J0171; J0461; J0690; J0692; J1100; J1644; J1650; J1815; J1885; J1940; J2001; J2060; J2250; J2270; J2405; J2704; J2765; J2795; J3010; J3370; J3475; J3480; J3490; J7030; J7050; J7070; J7120; P9016; P9045; P9047; Q9967; S0020; U0002